=== PATIENT | female | born 1965 | race Caucasian/White ===

== ENCOUNTER 2020-03-25 15:08 | Outpatient (CLI) | payer BC, SELFPAY ==
[2020-03-27 13:52] LABS: SARS-CoV-2 RNA PCR Negative
== END 2020-03-25 15:09 | disposition home or self-care (01) ==
LOC: CHSLAB 15:12
PROVIDERS: PCP Internal Medicine; Visit Provider Internal Medicine
DX: Z20.828 Contact with and (suspected) exposure to other viral communicable diseases (principal)
CPT/HCPCS: 87635; C9803; U0003

== ENCOUNTER → 2021-04-08 16:03 | Outpatient (CLI) | payer BC, SELFPAY ==
--- NOTE | ~2021-04-08 | MM_ITS ---
EXAMINATION: MM screening marta BI w kathie HISTORY: Screening mammogram TECHNIQUE: Craniocaudal and mediolateral oblique 3-D tomosynthesis images were obtained and synthetic 2-D images were generated. CAD analysis was submitted and interpreted. COMPARISON: 05/02/2019 bilateral screening mammogram 04/29/2017 diagnostic left mammogram and limited left breast ultrasound 02/10/2016 bilateral screening mammogram BREAST PARENCHYMAL COMPOSITION: There are scattered areas of fibroglandular density. FINDINGS: There is no evidence of suspicious mass, calcification, or architectural distortion to sugg est malignancy in either breast. There has been no suspicious interval change. IMPRESSION: 1. No mammographic evidence of malignancy. 2. Recommend routine screening mammography in one year. BI-RADS Category 1: Negative Reviewed, dictated and finalized at location A.
== END ==
PROVIDERS: Visit Provider Nurse Practitioner
DX: Z12.31 Encounter for screening mammogram for malignant neoplasm of breast (principal)
CPT/HCPCS: 77063; 77067

== ENCOUNTER → 2021-06-17 13:27 | Outpatient (CLI) | payer BC, SELFPAY ==
--- NOTE | ~2021-06-17 | DEXA_ITS ---
Bone Density Report Name: ESTEVAN GREEN Age: 56 Sex: Female Ethnicity: White Date of : 1965 Indication: postmenopausal; screening for osteoporosis; height loss; Referring Provider: KIEL, GEORGINA Study: Bone densitometry was performed. Exam Date: June 17, 2021 Accession number: [id number] Bone Density: Region BMD T-score Z-score Classification AP Spine (L1, L4) 1.100 0.6 1.6 Normal Femoral Neck (Left) 0.865 0.1 1.2 Normal Total Hip (Left) 1.058 0.9 1.6 Normal Femoral Neck (Right) 0.869 0.2 1.2 Normal Total Hip (Right) 1.022 0.7 1.3 Normal Total Hip Mean 1.040 0.8 1.5 Normal World Health Organization criteria for BMD impression classify patients as: Normal (T-score at or above -1.0), Osteopenia (T-score between -1.0 and -2.5), or Osteoporosis (T-score at or below -2.5). 10-year Fracture Risk: FRAX not reported because: All T-scores for Spine Total, Hip Total, Femoral Neck at or above -1.0 Clinical Information Provided by Patient: Patient maximum height was 66 Menopause Age: 51 No regular weight bearing exercise Does not regularly consume dairy products Drinks caffeinated beverages Onset of menses at age 15 Number of children 1 Impression: The patient has normal bone mass. Discussion: BONE DENSITY IS ABOVE THE MINIMUM DESIRABLE LEVEL AT ALL SKELETAL SITES TESTED. This patient?s bone mineral density is above the minimum desirable level (T-score -1.0 or better) at all sites measured. The patient should follow a healthful lifestyle (good nutrition with adequate calcium and vitamin D, and appropriate weight-bearing exercise). Follow-Up: Consider repeating this study in 5 years or sooner if there is some new clinical indication. Reported by: [facility] on 06/17/2021 1:39:00 PM. Reviewed, dictated and finalized at location [facility]
== END ==
PROVIDERS: PCP Internal Medicine; Visit Provider Nurse Practitioner
DX: Z78.0 Asymptomatic menopausal state (principal)
CPT/HCPCS: 77080

== ENCOUNTER 2021-08-17 10:36 | Emergency (ER) | payer BC, SELFPAY ==
--- NOTE | ~2021-08-17 | CT_ITS ---
EXAMINATION: CT cervical spine wo con DATE: 08/17/2021 11:33 INDICATION: Head injury. TECHNIQUE: Computed tomography (CT) of the cervical spine was performed without intravenous contrast. Automated exposure control and iterative reconstruction technique were employed. The dose-length pro duct was 402.02 mGy-cm. COMPARISON: None FINDINGS: There is cervical kyphosis. Vertebral body heights are normal. There is mildly decreased di sc height at C3-C4 and severely decreased disc height from C4-C5 through C6-C7 with endplate remodeli ng. The following disc levels are specifically discussed: C2-C3: There is mild bilateral uncovertebral joint osteoarthritis. There is severe bilateral facet landry int osteoarthritis. There is mild right neural foraminal stenosis. There is no central canal stenosis . C3-C4: There is moderate bilateral uncovertebral joint osteoarthritis. There is mild bilateral facet joint osteoarthritis. There is mild left neural foraminal stenosis. There is mild central canal steno sis. C4-C5: There is severe bilateral uncovertebral joint osteoarthritis. There is mild left facet joint o steoarthritis. There is mild bilateral neural foraminal stenosis. There is mild central canal stenosi s. C5-C6: There is severe bilateral uncovertebral joint osteoarthritis. There is mild right facet joint osteoarthritis. There is mild bilateral neural foraminal stenosis. There is mild central canal stenos is. C6-C7: There is severe bilateral uncovertebral joint osteoarthritis. There is mild bilateral facet landry int osteoarthritis. There is mild bilateral neural foraminal stenosis. There is mild central canal st enosis. C7-T1: There is no uncovertebral joint osteoarthritis. There is severe right and mild left facet join t osteoarthritis. There is mild right neural foraminal stenosis. There is no central canal stenosis. IMPRESSION: 1. No fracture. 2. Moderate cervical spondylosis. Reviewed, dictated and finalized at location A. 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
--- NOTE | ~2021-08-17 | CT_ITS ---
EXAMINATION: CT brain wo con DATE: 08/17/2021 11:33 INDICATION: Loss of consciousness. Head injury. TECHNIQUE: Computed tomography (CT) of the head was performed without intravenous contrast. The mA wa s adjusted according to patient size. Iterative reconstruction technique was employed. The dose-lengt h product was 605.33 mGy-cm. COMPARISON: None FINDINGS: There is no intracranial hemorrhage, acute infarction, or abnormal intracranial mass lesion . The ventricles are normal in size. There are no pathologically enlarged lymph nodes. There is mild mucosal thickening in the paranasal sinuses. The mastoid air cells are normal. There is right-sided s calp soft tissue swelling. IMPRESSION: 1. Normal brain. Reviewed, dictated and finalized at location A. S BAKER IMPRESSION: 1. Normal brain.
[2021-08-17 10:43] VITALS: BP 144/102; PULSE 81; RESP 16; TEMP 36.4; O2SAT 99
[2021-08-17 11:04] VITALS: O2SAT 99
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
[2021-08-17 11:58] VITALS: BP 148/84; PULSE 76; RESP 16; O2SAT 97
== END 2021-08-17 12:00 | disposition home or self-care (01) ==
PROVIDERS: Emergency Provider Nurse Practitioner Family; PCP Internal Medicine
DX: S06.9X9A Unspecified intracranial injury with loss of consciousness of unspecified duration, initial encounter (principal); M47.12 Other spondylosis with myelopathy, cervical region; V86.55XA Driver of 3- or 4- wheeled all-terrain vehicle (ATV) injured in nontraffic accident, initial encounter
CPT/HCPCS: 70450; 72125; 99284

== ENCOUNTER → 2022-04-06 15:01 | Outpatient (CLI) | payer BC, SELFPAY ==
--- NOTE | ~2022-04-06 | US_ITS ---
EXAMINATION: US transvaginal DATE: 04/06/2022 15:30 INDICATION: Postmenopausal bleeding Comparison:No prior studies for comparison. TECHNIQUE: Multiple transabdominal and endovaginal sonographic images of the pelvis performed. FINDINGS: The uterus measures 6.1 x 2.8 x 3.5 cm. The endometrial complex measures 5.4 mm. The ovaries are not visualized, likely atrophic. There is no free fluid in the pelvis. There are no abnormal masses seen on either side. IMPRESSION: 1. Thickened endomtrial complex. The differential diagnosis includes endometrial hyperplasia, polyp a nd carcinoma. Biopsy is recommended. Reviewed, dictated and finalized at location B. IMPRESSION: 1. Thickened endomtrial complex. The differential diagnosis includes endometria l hyperplasia, polyp and carcinoma. Biopsy is recommended.
== END ==
PROVIDERS: PCP Internal Medicine; Visit Provider Nurse Practitioner
DX: N95.0 Postmenopausal bleeding (principal)
CPT/HCPCS: 76830

== ENCOUNTER 2022-04-28 15:23 | Outpatient (CLI) | payer BC, SELFPAY ==
[2022-04-28 16:15] LABS: Anion Gap 11 mmol/L (8-16); Blood Urea Nitrogen 16 mg/dL (7-17); Calcium 8.8 mg/dL (8.4-10.2); Carbon Dioxide 26 mmol/L (22-30); Chloride 102 mmol/L (98-107); Estimated Glomerular Filt Rate > 60; Glucose 63 mg/dL (65-110); Potassium 4.2 mmol/L (3.4-5.0); Sodium 139 mmol/L (137-145)
== END 2022-04-28 15:24 | disposition home or self-care (01) ==
LOC: ANHSURGERY 15:28
PROVIDERS: Anesthesiology; PCP Internal Medicine; Visit Provider Obstetrics & Gynecology Gynecology
DX: E10.9 Type 1 diabetes mellitus without complications (principal); Z01.818 Encounter for other preprocedural examination
CPT/HCPCS: 36415; 80048

== ENCOUNTER 2022-05-03 00:32 | Day surgery (SDC) | payer BC, SELFPAY ==
[2022-04-23 14:15] VITALS: BMI 34.9
--- NOTE | 2022-04-23 14:19 | PC.NURSE ---
Report to the Outpatient Waiting Room, entrance under the green pavilion located off [facility], at time 6:00 on date 05/03/22. Planned Procedure Time: 7:30. Time changes happen often and if your time is changed the preop area will call you the afternoon before. - You and your visitor will be asked to self-screen and do not enter if you have any COVID symptoms. - We encourage only one visitor and NO visitors under age 16 are allowed at this time. Your visitor will receive communication by the phone number that is given day of service. - The patient visitor is requested to social distance or may leave the building when not with patient due to restrictions. - A mask is OPTIONAL within the hospital. Patients may have clear liquids (water, carbonated beverages, clear teas, apple juice) until 3 hours prior to surgery (4:30) with a maximum of 20 ounces. - No food from midnight until time of surgery Take the following medications with a SIP of water the morning of surgery: VALACYCLOVIR Medications to discontinue per physician: N/A Date to take last dose: N/A Please no make-up, nail guamanian, hairspray, perfume, deodorant, or body powder the day of surgery. No jewelry (including any body piercings) or valuables the day of surgery, leave them at home. Please take a shower or bath the night before, or the morning of, surgery with an antibacterial soap. Wear comfortable, loose fitting clothing. - Jewelry must be removed prior to entering the operating room. Rings and piercings that are not removed may be cut off. - The hospital will not accept responsibility for valuables. - Please leave all valuables, including medications, at home the day of surgery. If you are going home after surgery, a licensed local company hazmat driver must drive you home. - NO public transportation without another adult. - We recommend that an adult stay with you for 24 hours following discharge. - We also recommend that you do not drive, make important decision, drink alcoholic beverages, or take any drugs that were not prescribed by your health care provider for at least 24 hours after your discharge time. Follow any additional instructions given to you from your surgeon. If you or anyone in your household have experienced Covid symptoms in the past week, please notify your surgeon or the nurse liaison at the phone number below for possible testing. Telephone instructions given to EMILI GREEN and asked if any additional questions and then verbalized understanding. Patient advised to call surgeon office or pre surgery nurse liaison [phone] if any additional questions.
--- NOTE | 2022-04-30 15:53 | WPDANESEPPF ---
Anes - Initial Pre Proc Eval Procedure: Operation Date: 05/03/22 07:30 Proposed Procedures p Hysteroscopy Dilation and Curettage Possible Myosure - Beba Grant MD Date/Time: 04/30/22 15:53 Surgeon: Beba Grant MD Pre Op Diagnosis: endometrial polyp Patient Data Age: 57 Gender: F Height: 1.65 m Weight: 95.25 kg Allergies Allergy/AdvReac Type Severity Reaction Status Date / Time Penicillins Allergy Mild RASH Verified 05/03/22 06:10 Home Medications Medication Instructions Recorded Confirmed Type dapagliflozin 10 mg tablet 10 mg PO DAILY 04/23/22 05/03/22 History (Farxiga) dulaglutide 3 mg/0.5 mL 3 mg subcut WEEKLY 04/23/22 05/03/22 History subcutaneous pen injector (Trulicity) insulin degludec 100 unit/mL (3 100 unit subcut DAILY 04/23/22 05/03/22 History mL) subcutaneous pen (Tresiba FlexTouch U-100 insulin) insulin lispro 100 unit/mL 5 unit subcut BID 04/23/22 05/03/22 History subcutaneous pen (Humalog KwikPen (U-100) Insulin) valacyclovir 500 mg tablet 500 mg PO DAILY 04/23/22 05/03/22 History Patient hx anesthesia problems: none Family hx anesthesia problems: none Results Review: All pre-operative results and documents have been reviewed as part of the pre-operative evaluation. [facility] Past Medical History Medical History (Updated 04/30/22 @ 15:54 by Kurt Casillas MD) Diabetes Obesity Social History Social History Smoking status: Never smoker Alcohol intake: current Drinks per week: 10 Substance use: never Substance use type: does not use Living arrangements: with family Spiritual care concerns: No Anes - Eval Final PreProcedure Day of Procedure 04/30/22 15:53 Patient weight: obese Heart: regular rate and rhythm Lungs: clear to auscultation and normal air movement Airway: Mallampati scale class II Neurological: alert and oriented Last oral intake: >/= 8 hours ASA classification: III Emergent: no Anesthetic plan: proceed Anesthesia type and monitoring: general GIVS and LMA Results Review: All pre-operative results and documents have been reviewed as part of the pre-operative evaluation. Informed Consent: The patient's anesthetic plan and its attendant risks and benefits were discussed with the patient/family/POA. Questions were solicited and answers provided to the satisfaction of the patient/family/POA.
[2022-05-03] MEDS: ACETAMINOPHEN 500 MG TABLET 1000 MG PO (06:14)
[2022-05-03 06:21] VITALS: BP 164/86; PULSE 69; RESP 16; TEMP 36.2; O2SAT 99
[2022-05-03] MEDS: LACTATED RINGERS 1,000 ML 30 ML IV CONT (06:49)
[2022-05-03 06:50] LABS: Glucose Point of Care 202 mg/dl (65-105)
--- NOTE | 2022-05-03 07:06 | WPDHPUPDATE1 ---
History and Physical Update Update Date/Time: 05/03/22 07:06 History and Physical has been reviewed, including an updated exam of the patient. There are NO changes in the patient's condition. Risks, benefits, and alternatives have been discussed and questions answered. Patient agrees to proceed with procedure.
--- NOTE | 2022-05-03 07:06 | PM.HPGS ---
History of Present Illness History of Present Illness Consent: Risks, benefits, and alternatives have been discussed and questions answered. Patient agrees to proceed with procedure. Chief complaint: endometrial polyp Narrative: Lindy Stone is a 57 year old female with postmenopausal bleeding. Patient underwent D&C hysteroscopy the office and did not tolerate very well. A polyp was found at that time but the patient was unable to tolerate attempted removal. The patient presents today for D&C hysteroscopy with resection of polyp. Risks of infection, bleeding, and perforation were reviewed. Possible pathology was discussed. Patient voices understanding and agrees to proceed. Review of Systems Review of Systems: not repeated day of surgery; patient states no changes in status PMFSH Past Medical History Medical History (Updated 05/03/22 @ 07:10 by Beba Grant MD) Diabetes HTN (hypertension) Obesity Surgical History Surgical History (Updated 05/03/22 @ 07:09 by Beba Grant MD) History of History of elbow surgery History of eyelid surgery History of repair of ACL History of rotator cuff surgery bilateral Social History Social History Smoking status: Never smoker Alcohol intake: current Drinks per week: 10 Substance use: never Substance use type: does not use Living arrangements: with family Spiritual care concerns: No Meds Home Medications and Allergies Home Medications Medication Instructions Recorded Confirmed Type dapagliflozin 10 mg tablet 10 mg PO DAILY 04/23/22 05/03/22 History (Farxiga) dulaglutide 3 mg/0.5 mL 3 mg subcut WEEKLY 04/23/22 05/03/22 History subcutaneous pen injector (Trulicity) insulin degludec 100 unit/mL (3 100 unit subcut DAILY 04/23/22 05/03/22 History mL) subcutaneous pen (Tresiba FlexTouch U-100 insulin) insulin lispro 100 unit/mL 5 unit subcut BID 04/23/22 05/03/22 History subcutaneous pen (Humalog KwikPen (U-100) Insulin) valacyclovir 500 mg tablet 500 mg PO DAILY 04/23/22 05/03/22 History Allergies Allergy/AdvReac Type Severity Reaction Status Date / Time Penicillins Allergy Mild RASH Verified 05/03/22 06:10 Vital Signs Vital Signs - 24 hr 05/03/22 06:21 Temperature 97.1 F L Pulse Rate 69 Respiratory Rate 16 Blood Pressure 164/86 H Pulse Oximetry 99 Oxygen Delivery Room Air Exam Const: General: healthy appearing and alert Orientation/consciousness: patient oriented x3 Resp: Effort & Inspection: normal respiratory effort GI: GI Palp: Yes Soft to palpation, No Tenderness to palpation present (GI) and No Palpable mass present : External Female Exam: normal external appearance Speculum Exam - Vagina: normal appearance of the vagina and normal vaginal discharge Speculum Exam - Cervix: normal appearance of the cervix Bimanual exam- vagina & uterus: uterine size normal and consistency normal Bimanual Exam- Adnexa, other: normal adnexae and No adnexal tenderness Neuro: General: patient oriented x3 Assessment and Plan Assessment and plan (1) Endometrial polyp: Code(s): N84.0 - Polyp of corpus uteri Status: Acute Assessment and Plan: polyp causing postmenopausal bleeding. Plan for hysteroscopy with resection of polyp and D&C
[2022-05-03] MEDS: LIDOCAINE HCL 1% LOCAL INJ 20 ML VIAL 30 ML INFILTRATE (07:54)
[2022-05-03] MEDS: KETOROLAC 30 MG/ML VIAL (*BKC) IV PUSH (07:55)
[2022-05-03 08:00] VITALS: BP 128/85; PULSE 71; RESP 12; O2SAT 96
--- NOTE | 2022-05-03 08:04 | P.OP_ITS ---
Procedure Note - Detailed Date of Procedure 05/03/22 Pre-op Diagnosis endometrial polyp postmenopausal bleeding Post-op Diagnosis Same Procedure Performed hysteroscopic resection of polyp with D&C Surgeon Beba Grant MD Anesthesia MAC and Local Findings uterus sounds to 6.5cm and a fundal polyp was noted; atrophic endometrium Description of Procedure The patient is taken to the operating room and placed under anesthesia in the dorsal lithotomy position. She was prepped and draped in the usual sterile fashion. [place] speculum was placed in the vagina and the cervix grasped on the anterior lip with a tenaculum. The cervix is injected in each quadrant with 1% lidocaine. The uterus is sounded to 6.5cm. The cervix was serially dilated to an 8 Hegar. The diagnostic MyoSure scope was placed. The polyp was noted and the polyp was removed with the MyoSure resection blade under direct visualization. The instruments are removed and the uterus curetted with the small curette. Minimal materials obtained consistent with the atrophic appear ance. All instruments are removed. Sponge, needle, and instrument counts are correct per the OR staff. Patient is awakened from anesthesia and taken to recovery in stable condition. Estimated Blood Loss 5 Drains No Packing No Pathology Yes ( Endometrial shavings and curettings) Complications No immediate complications Condition Stable Disposition PACU
[2022-05-03 08:05] LABS: Glucose Point of Care 180 mg/dl (65-105)
[2022-05-03 08:30] VITALS: BP 133/84; PULSE 58; RESP 20
[2022-05-03 08:45] VITALS: BP 155/80; PULSE 58; RESP 20
== END 2022-05-03 08:51 | disposition home or self-care (01) ==
PROVIDERS: PCP Internal Medicine; Visit Provider Obstetrics & Gynecology Gynecology
PROC: 0U5B8ZZ Destruction of Endometrium, Via Natural or Artificial Opening Endoscopic (ICD-10-PCS; CPT 58563; principal; 2022-05-03 07:30)
DX: N95.0 Postmenopausal bleeding (principal); N84.0 Polyp of corpus uteri; E11.9 Type 2 diabetes mellitus without complications; I10 Essential (primary) hypertension; E66.9 Obesity, unspecified; Z68.35 Body mass index [BMI] 35.0-35.9, adult; Z79.899 Other long term (current) drug therapy; Z79.4 Long term (current) use of insulin
CPT/HCPCS: 58558; 82948; 88305; A9270; J1885; J2250; J2704; J3010; J7120

== ENCOUNTER 2022-08-05 19:10 | Inpatient (IN) | payer BC, SELFPAY ==
--- NOTE | ~2022-08-05 | XR_ITS ---
Portable chest x-ray Comparison: 08/05/2022 Clinical History: Dyspnea Findings: Lungs are clear, without focal consolidation or pleural effusion. Cardiomediastinal silho uette is stable. Bones and soft tissues are unremarkable. Impression: Normal chest. Reviewed, dictated and finalized at [facility]. ING CHEF Impression: Normal chest.
--- NOTE | ~2022-08-05 | XR_ITS ---
EXAMINATION: XR chest 2V DATE: 08/05/2022 20:20 INDICATION: Shortness of breath. TECHNIQUE: Frontal and lateral views of the chest were obtained. COMPARISON: None. FINDINGS: The chest demonstrates clear lungs without pneumonia, pleural effusion, or pneumothorax. Th e heart size is normal. IMPRESSION: 1. No acute cardiopulmonary disease. Reviewed, dictated and finalized at location A. ENT ADVOCATE
--- NOTE | ~2022-08-05 | CT_ITS ---
CT scan of the Neck Technique: 2.5 mm axial scans were obtained through the neck without IV contrast administration. Mira nal and sagittal reconstructions of the neck were obtained. Dose reduction technique was used on this scan by utilizing automated exposure control and iterative reconstruction technique. The dose-length product (DLP) was 564.79 mGy-cm. Clinical History: Throat pain Findings: There is no evidence of any significant cervical lymphadenopathy. Several small, nonenlarged jugulo- digastric and posterior cervical lymph nodes are noted bilaterally. Parapharyngeal spaces appear norm al bilaterally. The parotid and submandibular glands appear normal. The pharyngeal mucosal spaces appear normal. No soft tissue masses are seen in the neck. The thyroid gland appears normal. Images of the lung apices reveal no abnormalities. There is extensi ve opacification of bilateral ethmoid air cells, bilateral sphenoid sinuses, with mild sinus disease the bilateral maxillary sinuses. Mastoid air cells are clear. Mild degenerative spondylitic changes in the cervical spine are noted, with multilevel mild disc narr owing and multiple mild disc osteophyte complexes. Impression: No acute inflammatory process seen in the neck. Sinus disease, as above. Reviewed, dictated and finalized at location . STFEEDING EDUCATOR Impression: No acute inflammatory process seen in the neck. Sinus disease, as above.
[2022-08-05 19:22] VITALS: BP 177/99; PULSE 98; RESP 20; TEMP 36.9; O2SAT 99
--- NOTE | 2022-08-05 19:26 | ECG_ITS ---
Measurements Intervals [place] Rate: 112 P: 63 VT: 112 QRS: 40 QRSD: 76 T: 59 QT: 323 QTc: 442 Interpretive Statements SINUS TACHYCARDIA WITH SHORT VT INTERVAL OTHERWISE UNREMARKABLE ECG NO PREVIOUS ECG AVAILABLE FOR COMPARISON Electronically Signed On 08-06-2022 15:12:28 PRINTED CIRCUIT BOARD ASSEMBLY REPAIRER by Osman Kenney M.D.
[2022-08-05 19:59] LABS: Basophils Absolute Auto 0.1 K/mm3 (0.0-0.1); Basophils Percent Auto 0.6 % (0.2-1.2); Hematocrit 48.5 % (37.0-47.0); Hemoglobin 15.3 g/dL (12.0-15.0); Immature Granulocyte Absolute 0.14 K/mm3 (0.00-0.031); Immature Granulocyte Percent A 1.2 % (0-0.5); Lymphocytes Absolute Auto 0.69 K/mm3 (0.9-3.2); Lymphocytes Percent Auto 5.9 % (18.3-44.2); Mean Corpuscular HGB Conc 31.5 g/dl (32-36); Mean Corpuscular Hemoglobin 32.1 pg (26-34); Mean Corpuscular Volume 101.9 fl (80-100); Mean Platelet Volume 9.3 fl (7.4-10.4); Monocytes Absolute Auto 1.2 K/mm3 (0.1-0.6); Monocytes Percent Auto 10.4 % (2.6-8.5); Neutrophils Absolute Auto 9.7 K/mm3 (1.3-6.7); Neutrophils Percent Auto 81.9 % (45.5-73.1); Platelet Count Result 489 k/mm3 (150-375); Red Blood Count 4.76 M/mm3 (4.2-5.4); Red Cell Distribution Width 14.5 % (11.5-14.5); White Blood Count 11.8 K/mm3 (4.5-10.0)
[2022-08-05 20:09] LABS: Alanine Aminotransferase 31 U/L (6-35); Albumin Level 4.7 g/dL (3.5-5.1); Alkaline Phosphatase 171 U/L (38-126); Anion Gap 23 mmol/L (8-16); Aspartate Amino Transferase 35 U/L (14-36); Bilirubin,Total 0.7 mg/dL (0.2-1.3); Blood Urea Nitrogen 23 mg/dL (7-17); Calcium 9.3 mg/dL (8.4-10.2); Carbon Dioxide 6 mmol/L (22-30); Chloride 103 mmol/L (98-107); Estimated CRCL calculation 41 ml/min; Estimated Glomerular Filt Rate 33; Glucose 300 mg/dL (65-110); Potassium 5.5 mmol/L (3.4-5.0); Sodium 132 mmol/L (137-145)
[2022-08-05 21:01] VITALS: BP 163/90; PULSE 111; O2SAT 99
[2022-08-05 23:03] VITALS: BP 165/93; PULSE 95; O2SAT 96
[2022-08-06] VITALS (25 sets, daily range): BP systolic 143–188; BP diastolic 65–96; PULSE 71–108; RESP 18–27; TEMP 36.3–37.1; O2SAT 95–100; BMI 35.4
--- NOTE | 2022-08-06 01:57 | ED.SOB ---
HPI - SOB/Dyspnea General Chief Complaint: Shortness of Breath/Dyspnea Stated Complaint: sob Time Seen by Provider: 08/06/22 01:50 Source: RN notes reviewed History of Present Illness HPI Narrative: Patient presents emergency department from home for shortness of breath. Patient states symptoms began approximately 5 days ago when she developed a sore throat she states that that progressed to a sore throat with rhinorrhea and then began to feel short of breath yesterday she states she has had a cough this been nonproductive. States that she is also been having nausea and vomiting. She denies any fevers or chills she denies any chest pain she denies any abdominal pain or diarrhea. Patient states she has a diabetic and is on both insulin as well as oral medications Related Data Home Medications Medication Instructions Recorded Confirmed dapagliflozin 10 mg tablet 10 mg PO DAILY 04/23/22 05/03/22 (Farxiga) dulaglutide 3 mg/0.5 mL 3 mg subcut WEEKLY 04/23/22 05/03/22 subcutaneous pen injector (Trulicity) insulin degludec 100 unit/mL (3 100 unit subcut DAILY 04/23/22 05/03/22 mL) subcutaneous pen (Tresiba FlexTouch U-100 insulin) insulin lispro 100 unit/mL 5 unit subcut BID 04/23/22 05/03/22 subcutaneous pen (Humalog KwikPen (U-100) Insulin) valacyclovir 500 mg tablet 500 mg PO DAILY 04/23/22 05/03/22 Allergies Allergy/AdvReac Type Severity Reaction Status Date / Time Penicillins Allergy Mild RASH Verified 05/03/22 06:10 Review of Systems Review of Systems: Gen.: Denies fevers or chills Eyes: Denies eye pain or visual change ENT: See HPI Respiratory: Reports shortness of breath and cough CV: Denies chest pain or palpitations GI: Denies abdominal pain or diarrhea. Reports nausea and vomiting Musculoskeletal: Denies back pain or muscle pain Neuro: Denies numbness, tingling, weakness or focal weakness Skin: Denies rash Except as documented, all other systems reviewed and negative PMF Past Medical History Medical History Diabetes HTN (hypertension) Obesity Surgical History Surgical History (Updated 05/03/22 @ 07:09 by Beba Grant MD) History of History of elbow surgery History of eyelid surgery History of repair of ACL History of rotator cuff surgery bilateral Social History Social History Smoking status: Never smoker Alcohol intake: current Drinks per week: 10 Substance use: never Substance use type: does not use Living arrangements: with family Spiritual care concerns: No Exam Narrative: APPEARANCE: No acute distress, nontoxic, resting in bed EYES: EOMI HEENT: Normocephalic, atraumatic, TMs clear bilaterally nares patent oral mucosa dry mild erythema in the posterior pharynx and bilateral tonsils tonsils 2+ with no exudate uvula midline mild stridor present voice is hoarse RESPIRATORY: No respiratory distress mild wheezing upper lung baker, no rhonchi CARDIOVASCULAR: Regular rate and rhythm without murmurs rubs or gallops. ABDOMINAL: Soft, nontender, nondistended, no rebound or guarding MUSCULOSKELETAl: Moves all extremities. No clubbing, cyanosis or edema. NEURO: Awake and alert. Following commands, speech normal, no focal deficits SKIN:: Warm, dry. No rashes lesions or abrasions PSYCHIATRIC: Normal affect/mood, Course Course Emergency Course: Called and discussed with Dr. Box for cognos bi developer service presentation and work-up agrees with admission to the ICU Called and Dr. Soliman for hospitalist service agrees with admission Discussed with patient and family results of workup and diagnosis. Discussed need for admission. Patient and family understand and agree to current treatment plan Vital Signs Vital signs: Vital Signs Temperature 98.4 F 08/05/22 19:22 Pulse Rate 98 08/05/22 19:22 Respiratory Rate 20
[2022-08-06] MEDS: IPRATROPIUM BR 0.02% INH SOLN 0.5 MG/2.5 ML VIAL INHALATION ×3 (02:23→21:12)
[2022-08-06] MEDS: ALBUTEROL SULFATE NEB 2.5 MG/3 ML INH INHALATION (02:23)
[2022-08-06] MEDS: SODIUM CHLORIDE 0.9% IV 1,000 ML 999 ML IV CONT ×2 (02:25→02:26)
[2022-08-06 02:44] LABS: INR 1.2; Partial Thromboplastin Time 33.4 SECONDS (22.3-36.8); Prothrombin Time 14.3 Seconds (11.1-14.7)
[2022-08-06 02:46] LABS: Alveolar/Arterial O2 Gradient 22.4 mmHg; Base Excess ABG -25.5 mEq/l (+/-2.0); Carboxyhemoglobin 1.2 % THb (0-2.0); Fractional Inspired Oxygen 21 %; HCO3 ABG 3.2 mEq/l (22.0-26.0); Methemoglobin ABG 0.4 %THb (0-1.5); Oxygen Content ABG 20.1 %vol (16.0-22.0); PO2 ABG 112.6 mmHg (80.0-100.0); PO2 FiO2 Ratio Arterial Blood 5.36 %; Reduced Hemoglobin 2.4 %THb (0-5.0); Total Hemoglobin 14.8 g/dL (12.0-18.0)
[2022-08-06 02:48] LABS: Device ROOM AIR; Modified Allen's Test Pass; PCO2 ABG 12.3 mmHg (35.0-45.0); Site Drawn LEFT RADIAL; pH ABG 7.034 (7.350-7.450)
[2022-08-06 03:06] LABS: Strep Group A RT-PCR NOT DETECTED (Negative)
[2022-08-06 03:19] LABS: Blood Urea Nitrogen 27 mg/dL (7-17); Carbon Dioxide < 5 mmol/L (22-30); Chloride 99 mmol/L (98-107); Estimated CRCL calculation 33 ml/min; Estimated Glomerular Filt Rate 26; Glucose 421 mg/dL (65-110); Lipase 43 U/L (23-300); Magnesium 2.7 mg/dL (1.6-2.3); Sodium 130 mmol/L (137-145)
[2022-08-06 03:20] LABS: Influenza A QL RT-PCR Negative (Negative); Influenza B QL RT-PCR Negative (Negative); RSV RNA, RT-PCR Negative (Negative); SARS-CoV-2 RNA PCR Positive
[2022-08-06] MEDS: INSULIN HUMAN REGULAR (*BKC) 100 UNITS in SODIUM CHLORIDE 0.9% IV 99 ML 7.2 UNITS IV CONT (03:51)
[2022-08-06 04:51] LABS: Appearance Urine Clear (Clear); Bilirubin Urine 1+ (Negative); Blood Urine 2+ (Negative); Color Urine Yellow (Yellow); Glucose Urine UA 2+ mg/dL (Negative); Ketones Urine 4+ mg/dL (Negative); Leukocyte Esterase Ur Negative LEU/UL (Negative); Nitrate Urine Negative (Negative); Protein Urine 2+ mg/dL (Negative); Urobilinogen Urine 0.2 mg/dL (<2.0)
[2022-08-06 04:55] LABS: Bacteria Urine Trace /hpf; Mucus Urine Rare /lpf; RBC Urine 0-2 /hpf (0-2); Squamous Epithelial Cell Urine Occasional /hpf (Few); WBC Urine 0-3 /hpf
[2022-08-06 05:03] LABS: Glucose Point of Care 337 mg/dl (65-105)
[2022-08-06 05:33] LABS: Add Urine Microscopic? YES
[2022-08-06 05:59] LABS: D Dimer 2.52 ug/mL (<0.48)
[2022-08-06 06:12] LABS: Glucose Point of Care 321 mg/dl (65-105)
[2022-08-06 06:32] LABS: Phosphorus 4.5 mg/dL (2.5-4.5)
[2022-08-06 06:54] LABS: Hemoglobin A1C 6.3 % (<5.7)
[2022-08-06 06:58] LABS: Blood Urea Nitrogen 26 mg/dL (7-17); Calcium 8.2 mg/dL (8.4-10.2); Carbon Dioxide < 5 mmol/L (22-30); Chloride 104 mmol/L (98-107); Estimated CRCL calculation 36 ml/min; Estimated Glomerular Filt Rate 29; Glucose 292 mg/dL (65-110); Potassium 4.9 mmol/L (3.4-5.0); Sodium 132 mmol/L (137-145)
[2022-08-06 07:20] LABS: Glucose Point of Care 315 mg/dl (65-105)
[2022-08-06] MEDS: SODIUM CHLORIDE 0.9% IV 1,000 ML 150 ML IV CONT (07:30)
[2022-08-06 08:32] LABS: Glucose Point of Care 233 mg/dl (65-105)
[2022-08-06] MEDS: KCL 20 MEQ/D5/0.45% SOD CHL 1,000 ML 150 ML IV CONT ×2 (09:00→15:11)
--- NOTE | 2022-08-06 09:00 | ADMIMU ---
This patient, Lindy Stone, was admitted to IMU status, and placed in Intensive Care Unit-11. Patient/family oriented to hospital policies and general routines including ID bracelet, bed and alarms, visiting hours, pain management, procedures, bathroom and other care routines, personal items, smoking policy, room service/diet, and visiting hours. Valuables list has been completed. Information on how to activate the Rapid Response Team has been discussed. Patient/Family are encouraged to report perceived risks to care and to ask questions if they do not understand what they are told or what they should do.
[2022-08-06 09:38] LABS: Glucose Point of Care 186 mg/dl (65-105)
[2022-08-06] MEDS: SODIUM CHLORIDE 0.9% IV 500 ML IV CONT ×2 (09:51→10:57)
[2022-08-06] MEDS: racEPINEPHrine 2.25% NEBU SOLN 0.5 ML VIAL.NEB INHALATION (10:06)
[2022-08-06 10:09] LABS: Anion Gap 18 mmol/L (8-16); Blood Urea Nitrogen 23 mg/dL (7-17); Carbon Dioxide 8 mmol/L (22-30); Chloride 103 mmol/L (98-107); Estimated CRCL calculation 53 ml/min; Estimated Glomerular Filt Rate 46; Glucose 159 mg/dL (65-110); Potassium 4.4 mmol/L (3.4-5.0); Sodium 129 mmol/L (137-145)
[2022-08-06 10:43] LABS: Glucose Point of Care 192 mg/dl (65-105)
[2022-08-06] MEDS: hydrALAZINE HCL 20 MG/ML VIAL 10 MG IV PUSH (11:01)
[2022-08-06] MEDS: REMDESIVIR 200 MG/NS 250 ML 200 MG/250 ML BAG 250 MG IVPB (11:24)
[2022-08-06] MEDS: guaiFENesin/DEXTROMETHORPHAN 10 ML UDC PO (11:34)
--- NOTE | 2022-08-06 11:44 | PCDIET ---
Physician consult for DKA. Patient is COVID positive. Diet order: NPO. When diet order advances would recommend a Diabetic Consistent Carb diet. Will continue to monitor every 3 days.
--- NOTE | 2022-08-06 11:55 | WPDCNINT ---
Assessment and Plan Assessment and plan (1) DKA (diabetic ketoacidosis): Code(s): E11.10 - Type 2 diabetes mellitus with ketoacidosis without coma Status: Acute Assessment and Plan: Patient presented with increasing shortness of breath, rhinorrhea, nonproductive cough -is found to be in DKA in the ER, was given 2 L IV fluid bolus and started on insulin infusion per DKA protocol -she had elevated beta hydroxybutyrate and anion gap metabolic acidosis -urine ketones +glucose +protein -a given additional 500 mL IV flui bolus in the ICU -hemoglobin A1c is 6.3 this admission -patient tested positive for COVID which could have been an inciting factor for a DKA -he also stated that she has been not taking her long-acting insulin for the last few days due to decreased p.o. intake (2) Acute renal insufficiency: Code(s): N28.9 - Disorder of kidney and ureter, unspecified Status: Acute Assessment and Plan: Patient presented with hypovolemia, acute kidney injury with creatinine of 2.0 this admission -she received 2 mg of L of IV fluids and repeat creatinine is 1.2 which is improved since admission -continue fluids per DKA protocol -monitor renal function, electrolytes and urine output (3) COVID-19: Code(s): U07.1 - COVID-19 Status: Acute Assessment and Plan: Patient with shortness of breath, nonproductive cough, rhinorrhea, sore throat -SARS-CoV-2 PCR was positive on 08/06/2022 in the ER -patient currently on room air -according to current guidelines patient is a candidate for remdesivir which was started to prevent any progression of the disease -she is not a candidate for baricitinib or steroids since she is not on any oxygen. Receive a dose of dexamethasone in the ER -CT scan of the neck and soft tissues showed ?There is extensive opacification of bilateral ethmoid air cells, bilateral sphenoid sinuses, with mild sinus disease the bilateral maxillary sinuses. Mastoid air cells are clear. No acute inflammatory process seen in the neck -patient is penicillin allergic, will start patient on Levaquin for her sinus disease Plan DVT prophylaxis: SQ lovenox Stress ulcer prophylaxis:not indicated Nutrition:NPO for now due to DKA Code Status: Full code Critical Care Time Spent: 47 minutes Due to a high probability of clinically significant, life threatening deterioration, the patient required my highest level of preparedness to intervene emergently and I personally spent this critical care time directly and personally managing the patient. This critical care time included obtaining a history; examining the patient; pulse oximetry; ordering and review of studies; arranging urgent treatment with development of a management plan; evaluation of patient's response to treatment; frequent reassessment; and discussions with other providers. It was exclusive of separately billable procedures and treating other patients and teaching time. Please see Assessment and Plan section and the rest of the note for further information on patient assessment and treatment This dictation may have been done utilizing a voice recognition system. Attempts have been made to correct errors. However, there may be uncorrected grammatical, spelling, and recognitions errors present. [employer] Specialist Consult Note Consult date: 08/06/22 Reason for consult: Diabetic ketoacidosis, COVID-19, shortness of breath, sore throat, rhinorrhea HPI: Lindy Stone is a 57 year old female with past medical history of diabetes, hypertension, obesity presented the ED on 08/06/2022 complains of shortness of breath, sore throat, rhinorrhea that started about 5 days ago. The shortness of breath worsened 1 day prior to admission and so did a cough which has been nonproductive. She has been complaining of nausea and vomiting, stated to me that she has not been taking her long-acting insulin only has short-acting insulin. She denies any fevers or chills, denies
[2022-08-06 12:11] LABS: Glucose Point of Care 152 mg/dl (65-105)
[2022-08-06] MEDS: INSULIN HUMAN REGULAR (*BKC) 100 UNITS in SODIUM CHLORIDE 0.9% IV 99 ML 7.3 UNITS IV CONT (12:20)
[2022-08-06] MEDS: levoFLOXacin 500 MG TABLET PO (12:58)
[2022-08-06 13:05] LABS: Glucose Point of Care 134 mg/dl (65-105)
[2022-08-06 14:18] LABS: Glucose Point of Care 131 mg/dl (65-105)
[2022-08-06] MEDS: METOPROLOL TARTRATE 12.5 MG TABLET PO ×2 (14:23→20:14)
[2022-08-06] MEDS: LEVALBUTEROL NEB 1.25 MG/3 ML 0.63 MG INHALATION ×2 (14:40→21:12)
[2022-08-06 15:03] LABS: Glucose Point of Care 128 mg/dl (65-105)
--- NOTE | 2022-08-06 15:05 | PM.IMHP ---
H&P: HPI History of Present Illness Date/Time: 08/06/22 15:05 Chief Complaint: shortness of breath Narrative: patient presents to the ED with shortness of breath that started approximately yesterday. She states that she has been having sore throat and rhinorrhea for the past few days with associated cough which is nonproductive. She has also been having nausea and vomiting. She denies any fever or chills. No chest pain. She started getting short of breath since yesterday and hence came to the ED for evaluation. She does have history of diabetes and is on insulin and also on Trulicity and Farxiga. In the ED she was noted to have mild leukocytosis 11,000 severe metabolic acidosis with bicarbonate of 6 with ELANA hyperglycemia at 300. Beta hydroxybutyrate was elevated at 11.3 D-dimer was elevated hyperkalemia lipase was normal she was also tested positive for COVID. She reports that she did to home test yesterday which was negative. She was diagnosed with DKA and was started on insulin drip. She has not had any DKA in the past. She has diagnosis Of diabetes in her 20s. Review of Systems Review of Systems: - CONSTITUTIONAL: Denies weight loss, fever and chills. - HEENT: Denies changes in vision and hearing - RESPIRATORY: reports SOB and cough. - CV: Denies palpitations and CP. - GI: Denies abdominal pain, reports nausea, vomiting and denies diarrhea. - : Denies dysuria and urinary frequency. - MSK: Denies myalgia and joint pain. - SKIN: Denies rash and pruritus. - NEUROLOGICAL: Denies headache and syncope. - PSYCHIATRIC: Denies recent changes in mood. Denies anxiety and depression. [facility] Past Medical History Medical History Diabetes HTN (hypertension) Obesity Surgical History Surgical History (Updated 05/03/22 @ 07:09 by Beba Grant MD) History of History of elbow surgery History of eyelid surgery History of repair of ACL History of rotator cuff surgery bilateral Social History Social History Smoking status: Never smoker Alcohol intake: current Drinks per week: 5 Substance use: current Substance use type: does not use Lack of Transportation: No Lack of Food: Never True Current Housing: I Have Housing Concerned About Future Housing: No Difficulty Paying Gas/Electric Bills: No Difficulty Paying for Meds: No Currently Unemployed: YES Education: High School Diploma/GED Difficulty w/ Childcare or Family Care: No Living arrangements: with family Spiritual care concerns: No Meds Home Medications and Allergies Home Medications Medication Instructions Recorded Confirmed Type dapagliflozin 10 mg tablet 10 mg PO DAILY 04/23/22 08/06/22 History (Farxiga) dulaglutide 3 mg/0.5 mL 3 mg subcut WEEKLY 04/23/22 08/06/22 History subcutaneous pen injector (Trulicity) insulin degludec 100 unit/mL (3 100 unit subcut DAILY 04/23/22 08/06/22 History mL) subcutaneous pen (Tresiba FlexTouch U-100 insulin) insulin lispro 100 unit/mL 5 unit subcut BID 04/23/22 08/06/22 History subcutaneous pen (Humalog KwikPen (U-100) Insulin) valacyclovir 500 mg tablet 500 mg PO DAILY 04/23/22 08/06/22 History aspirin 81 mg tablet 81 mg PO DAILY 08/06/22 08/06/22 History Allergies Allergy/AdvReac Type Severity Reaction Status Date / Time Penicillins Allergy Mild RASH Verified 05/03/22 06:10 Vital Signs Vital Signs - 24 hr 08/05/22 19:22 08/05/22 21:01 08/05/22 23:03 Temperature 98.4 F Pulse Rate 98 111 H 95 Respiratory Rate 20 Blood Pressure 177/99 H 163/90 H 165/93 H Pulse Oximetry 99 99 96 Oxygen Delivery Room Air Fraction of Inspired Oxygen 08/06/22 00:51 08/06/22 02:42 08/06/22 02:30 Temperature Pulse Rate 106 H 104 H Respiratory Rate 27 H Blood Pressure 172/92 H Pulse Oximetry 100
[2022-08-06 15:36] LABS: Anion Gap 10 mmol/L (8-16); Blood Urea Nitrogen 16 mg/dL (7-17); Calcium 8.2 mg/dL (8.4-10.2); Carbon Dioxide 12 mmol/L (22-30); Chloride 109 mmol/L (98-107); Estimated CRCL calculation 70 ml/min; Estimated Glomerular Filt Rate > 60; Glucose 131 mg/dL (65-110); Potassium 4.2 mmol/L (3.4-5.0); Sodium 131 mmol/L (137-145)
[2022-08-06 16:11] LABS: Glucose Point of Care 131 mg/dl (65-105)
--- NOTE | 2022-08-06 16:53 | PC.NURSE ---
Addendum entered by Bertha Xiong RN 08/06/22 16:55: Call [address] Box Addendum entered by Bertha Xiong RN 08/06/22 16:54: Call [address] Box Original Note: Notified Dr. Box of patient's BMP results. CO2 of 12 and Anion Gap of 10, insulin gtt at 5.7 units/hr. New order to continue insulin gtt and give another 500 ml bolus of NS
[2022-08-06] MEDS: SODIUM CHLORIDE 0.9% IV 500 ML 999 ML IV CONT (17:14)
[2022-08-06 18:04] LABS: Glucose Point of Care 129 mg/dl (65-105)
[2022-08-06 18:04] LABS: Glucose Point of Care 147 mg/dl (65-105)
[2022-08-06 19:03] LABS: Glucose Point of Care 108 mg/dl (65-105)
[2022-08-06 19:59] LABS: Anion Gap 9 mmol/L (8-16); Blood Urea Nitrogen 13 mg/dL (7-17); Calcium 8.5 mg/dL (8.4-10.2); Carbon Dioxide 15 mmol/L (22-30); Chloride 109 mmol/L (98-107); Estimated CRCL calculation 79 ml/min; Estimated Glomerular Filt Rate > 60; Glucose 108 mg/dL (65-110); Potassium 4.1 mmol/L (3.4-5.0); Sodium 133 mmol/L (137-145)
[2022-08-06 20:26] LABS: Glucose Point of Care 105 mg/dl (65-105)
[2022-08-06] MEDS: INSULIN GLARGINE (*BKC) 100 UNITS/ML 25 UNITS SUB-Q (21:27)
[2022-08-06 21:35] LABS: Glucose Point of Care 105 mg/dl (65-105)
[2022-08-06 22:25] LABS: Glucose Point of Care 119 mg/dl (65-105)
[2022-08-07] VITALS (19 sets, daily range): BP systolic 137–186; BP diastolic 70–83; PULSE 68–102; RESP 18–25; TEMP 36.3–36.9; O2SAT 97–99
[2022-08-07 00:12] LABS: Glucose Point of Care 136 mg/dl (65-105)
[2022-08-07] MEDS: guaiFENesin/DEXTROMETHORPHAN 10 ML UDC PO ×3 (03:29→21:33)
[2022-08-07] MEDS: LEVALBUTEROL NEB 1.25 MG/3 ML 0.63 MG INHALATION (03:30)
[2022-08-07] MEDS: IPRATROPIUM BR 0.02% INH SOLN 0.5 MG/2.5 ML VIAL INHALATION (03:30)
[2022-08-07 03:35] LABS: Basophils Percent Auto 0.2 % (0.2-1.2); Hematocrit 38.3 % (37.0-47.0); Hemoglobin 12.9 g/dL (12.0-15.0); Immature Granulocyte Absolute 0.06 K/mm3 (0.00-0.031); Immature Granulocyte Percent A 0.5 % (0-0.5); Lymphocytes Absolute Auto 0.59 K/mm3 (0.9-3.2); Mean Corpuscular HGB Conc 33.7 g/dl (32-36); Mean Corpuscular Hemoglobin 31.8 pg (26-34); Mean Corpuscular Volume 94.3 fl (80-100); Monocytes Absolute Auto 1.2 K/mm3 (0.1-0.6); Monocytes Percent Auto 10.4 % (2.6-8.5); Neutrophils Absolute Auto 9.9 K/mm3 (1.3-6.7); Neutrophils Percent Auto 83.9 % (45.5-73.1); Platelet Count Result 343 k/mm3 (150-375); Red Blood Count 4.06 M/mm3 (4.2-5.4); Red Cell Distribution Width 14.2 % (11.5-14.5); White Blood Count 11.8 K/mm3 (4.5-10.0)
[2022-08-07 03:48] LABS: INR 1.1; Prothrombin Time 13.6 Seconds (11.1-14.7)
[2022-08-07 03:55] LABS: Alanine Aminotransferase 26 U/L (6-35); Albumin Level 3.5 g/dL (3.5-5.1); Alkaline Phosphatase 119 U/L (38-126); Anion Gap 10 mmol/L (8-16); Aspartate Amino Transferase 32 U/L (14-36); Bilirubin,Total 0.5 mg/dL (0.2-1.3); Blood Urea Nitrogen 13 mg/dL (7-17); Calcium 8.6 mg/dL (8.4-10.2); Carbon Dioxide 16 mmol/L (22-30); Chloride 112 mmol/L (98-107); Estimated CRCL calculation 79 ml/min; Estimated Glomerular Filt Rate > 60; Glucose 199 mg/dL (65-110); Magnesium 2.4 mg/dL (1.6-2.3); Potassium 4.4 mmol/L (3.4-5.0); Sodium 138 mmol/L (137-145)
[2022-08-07] MEDS: hydrALAZINE HCL 20 MG/ML VIAL 10 MG IV PUSH ×2 (05:18→14:49)
[2022-08-07] MEDS: INSULIN ASPART (*BKC) 100 UNITS/ML SUB-Q ×3 (08:12→16:46)
[2022-08-07] MEDS: INSULIN GLARGINE (*BKC) 100 UNITS/ML 10 UNITS SUB-Q (08:13)
[2022-08-07] MEDS: valACYclovir HCL 500 MG TABLET PO (08:15)
[2022-08-07] MEDS: ENOXAPARIN 40 MG/0.4 ML SYRINGE SUB-Q (08:15)
[2022-08-07] MEDS: METOPROLOL TARTRATE 12.5 MG TABLET PO ×2 (08:15→20:53)
[2022-08-07] MEDS: levoFLOXacin 500 MG TABLET PO (08:15)
[2022-08-07] MEDS: BENZONATATE 100 MG CAPSULE 200 MG PO ×2 (08:25→17:17)
[2022-08-07] MEDS: SODIUM BICARBONATE 8.4% 50 MEQ/50 ML SYRINGE IV PUSH (08:25)
[2022-08-07] MEDS: ALBUTEROL SULFATE (*SP) AEROSOL 1 PUFF 2 PUFF INHALATION ×3 (08:43→20:41)
[2022-08-07 08:50] LABS: Glucose Point of Care 257 mg/dl (65-105)
[2022-08-07] MEDS: EMPAGLIFLOZIN 25 MG TABLET BY MOUTH (08:56)
[2022-08-07] MEDS: REMDESIVIR 100 MG/NS 250 ML 100 MG/250 ML BAG 250 MG IVPB (10:54)
[2022-08-07 12:49] LABS: Glucose Point of Care 260 mg/dl (65-105)
--- NOTE | 2022-08-07 13:17 | WPDINTPN ---
Progress Note: A&P Assessment and Plan (1) DKA (diabetic ketoacidosis): Code(s): E11.10 - Type 2 diabetes mellitus with ketoacidosis without coma Status: Acute Assessment and Plan: Patient presented with increasing shortness of breath, rhinorrhea, nonproductive cough, she has not been taking her insulin for the last 2 days due to decreased p.o. intake -is found to be in DKA in the ER, was given 2 L IV fluid bolus and started on insulin infusion per DKA protocol -she had elevated beta hydroxybutyrate and anion gap metabolic acidosis -urine ketones +glucose +protein -patient received adequate amount of IV fluids in the ER and ICU -hemoglobin A1c is 6.3 this admission -she was transition to long-acting insulin sliding scale insulin -started on diabetic diet -possible inciting event for DKA could have been COVID-19 (2) Acute renal insufficiency: Code(s): N28.9 - Disorder of kidney and ureter, unspecified Status: Acute Assessment and Plan: Patient presented with hypovolemia, acute kidney injury with creatinine of 2.0 this admission -she received adequate amount of IV fluids in the ICU and ER -adequate urine output, creatinine has normalized to 0.8 this morning -monitor renal function, electrolytes and urine output (3) COVID-19: Code(s): U07.1 - COVID-19 Status: Acute Assessment and Plan: Patient with shortness of breath, nonproductive cough, rhinorrhea, sore throat -SARS-CoV-2 PCR was positive on 08/06/2022 in the ER -patient currently on room air -according to current guidelines patient is a candidate for remdesivir which was started to prevent any progression of the disease -she is not a candidate for baricitinib or steroids since she is not on any oxygen. Receive a dose of dexamethasone in the ER -CT scan of the neck and soft tissues showed ?There is extensive opacification of bilateral ethmoid air cells, bilateral sphenoid sinuses, with mild sinus disease the bilateral maxillary sinuses. Mastoid air cells are clear. No acute inflammatory process seen in the neck -patient is penicillin allergic, will start patient on Levaquin for her sinus disease Plan DVT prophylaxis: SQ lovenox Stress ulcer prophylaxis: Lovenox Nutrition: Diabetic diet Code Status: Full code Critical Care Time Spent: 31 minutes Patient may be transferred to medical floor if okay with hospitalist Due to a high probability of clinically significant, life threatening deterioration, the patient required my highest level of preparedness to intervene emergently and I personally spent this critical care time directly and personally managing the patient. This critical care time included obtaining a history; examining the patient; pulse oximetry; ordering and review of studies; arranging urgent treatment with development of a management plan; evaluation of patient's response to treatment; frequent reassessment; and discussions with other providers. It was exclusive of separately billable procedures and treating other patients and teaching time. Please see Assessment and Plan section and the rest of the note for further information on patient assessment and treatment This dictation may have been done utilizing a voice recognition system. Attempts have been made to correct errors. However, there may be uncorrected grammatical, spelling, and recognitions errors present. Subjective Date/time seen: 08/07/22 13:17 Interval history: Reason for consult: DKA, COVID 19, shortness of breath, sore throat, rhinorrhea, nausea, vomiting 08/07/2022: Patient seen and examined the ICU. She was transitioned to long-acting insulin sliding scale insulin overnight after anion gap is closed. Insulin infusion has been discontinued. This morning patient states she feels much better, breathing is also better but she still has some nasal congestion, cough has improved. Patient is afebrile, hemodynamically stable, adequate urine output Rev
--- NOTE | 2022-08-07 14:50 | PC.NURSE ---
This patient, Lindy Stone, was transferred to [[id number] ] on 08/07/22 at 1350. Personal belongings sent with patient. Report given to [COSMO Fields ]. Appropriate documentation sent with patient.
[2022-08-07] MEDS: SALINE 0.65% NAS SOLN 44 ML BTL 1 SPRAY NASAL ×2 (14:51→20:52)
--- NOTE | 2022-08-07 16:25 | PM.IMPN ---
Progress Note: A&P Assessment and Plan (1) DKA (diabetic ketoacidosis): Code(s): E11.10 - Type 2 diabetes mellitus with ketoacidosis without coma Status: Acute (2) Acute renal insufficiency: Code(s): N28.9 - Disorder of kidney and ureter, unspecified Status: Acute (3) COVID-19: Code(s): U07.1 - COVID-19 Status: Acute Plan # acute DKA: IV fluid insulin infusion per DKA protocol elevated beta hydroxybutyrate and increased anion gap metabolic acidosis. A1c was 6.3 She does reports he has been taking long-acting insulin receive however has been not taking her Humalog. Likely underlying infection leading to related of insulin deficiency causing DKA. Continue DKA protocol as ordered Gap has closed and has been transitioned to Lantus lispro and diabetic diet. Continue to monitor labs Will hold SGLT 2 inhibitor to DKA # shortness of breath likely due to severe acidosis. Chest x-ray clear. Sinus disease Levaquin started allergic to penicillin # acute COVID infection: Likely factor for inciting DKA.No hypoxia and hence no baricitinib or remdesivir or steroid. #DVT prophylaxis: SQ lovenox # ELANA creatinine of 2 on admission continue IV fluid resolved # DVT prophylaxis Lovenox # code status full code Subjective Date/time seen: 08/07/22 16:25 Interval history: transfer out of the ICU today. Transition to basal bolus insulin. Diabetic diet Review of Systems Review of Systems: All systems reviewed & are unremarkable except as noted in HPI and below Objective Data Vital Signs Vital Signs: Vital Signs - 24 hr 08/06/22 18:00 08/06/22 18:00 08/06/22 20:14 Temperature Pulse Rate 90 88 92 Respiratory Rate 25 H Blood Pressure 158/78 H Pulse Oximetry 98 Oxygen Delivery Fraction of Inspired Oxygen 08/06/22 20:01 08/06/22 21:15 08/06/22 21:15 Temperature 97.3 F L Pulse Rate 85 73 Respiratory Rate 25 H 23 H Blood Pressure 146/77 H Pulse Oximetry 98 96 Oxygen Delivery Room Air Fraction of Inspired Oxygen 08/06/22 20:00 08/06/22 20:00 08/06/22 22:00 Temperature Pulse Rate 85 78 Respiratory Rate Blood Pressure Pulse Oximetry Oxygen Delivery Room Air Fraction of Inspired Oxygen 08/07/22 00:00 08/07/22 00:00 08/06/22 23:00 Temperature Pulse Rate 77 78 Respiratory Rate 22 H Blood Pressure 143/70 H Pulse Oximetry 95 Oxygen Delivery Room Air Fraction of Inspired Oxygen 08/07/22 00:00 08/07/22 02:00 08/07/22 02:00 Temperature 98.0 F Pulse Rate 68 78 78 Respiratory Rate 20 22 H Blood Pressure 141/70 H 137/76 Pulse Oximetry 99 97 Oxygen Delivery Fraction of Inspired Oxygen 08/07/22 03:30 08/07/22 03:33 08/07/22 03:38 Temperature 97.4 F L Pulse Rate 81 Respiratory Rate 19 Blood Pressure Pulse Oximetry Oxygen Delivery Room Air Fraction of Inspired Oxygen 08/07/22 04:00 08/07/22 04:29 08/07/22 05:08 Temperature Pulse Rate 75 102 H 91 Respiratory Rate 21 H 25 H Blood Pressure 184/83 H 174/75 H Pulse Oximetry 97 99 Oxygen Delivery Fraction of Inspired Oxygen 08/07/22 03:43 08/06/22 21:28 08/07/22 06:00 Temperature Pulse Rate 80 71 100 Respiratory Rate 19 23 H Blood Pressure Pulse Oximetry Oxygen Delivery Fraction of Inspired Oxygen 08/07/22 06:00 08/07/22 08:15 08/07/22 08:26 Temperature Pulse Rate 100 100 Respiratory Rate 21 H Blood Pressure 146/74 H Pulse Oximetry 97 98 Oxygen Delivery Room Air Fraction of Inspired Oxygen 21 08/07/22 08:00 08/07/22 08:00 08/07/22 08:00 Temperature 97.7 F Pulse Rate 88 90 Respiratory Rate 20 Blood Pressure 149/75 H Pulse Oximetry 98 97 Oxygen Delivery Room Air Fraction of Inspired Oxygen 08/07/22 10:00 08/07/22 10:00 08/07/22 14:36 Temperature 98.4 F Pulse Rate 102 H 102 H 89 Respiratory Rate 25 H 24 H Blood Pressure 145/74 H 186/81
[2022-08-07 16:45] LABS: Glucose Point of Care 281 mg/dl (65-105)
[2022-08-07] MEDS: SODIUM BICARBONATE TAB 650 MG TABLET PO (17:14)
[2022-08-07] MEDS: INSULIN GLARGINE (*BKC) 100 UNITS/ML 30 UNITS SUB-Q (20:54)
[2022-08-07 21:00] LABS: Glucose Point of Care 287 mg/dl (65-105)
[2022-08-08] VITALS (7 sets, daily range): BP systolic 153–159; BP diastolic 83; PULSE 79–97; RESP 18; TEMP 36.8–37; O2SAT 96–98
[2022-08-08] MEDS: guaiFENesin/DEXTROMETHORPHAN 10 ML UDC PO ×3 (03:09→16:29)
[2022-08-08] MEDS: BENZONATATE 100 MG CAPSULE 200 MG PO ×3 (03:09→22:33)
[2022-08-08 05:51] LABS: Basophils Percent Auto 0.2 % (0.2-1.2); Eosinophils Percent Auto 0.1 % (0-4.4); Hematocrit 37.8 % (37.0-47.0); Hemoglobin 12.8 g/dL (12.0-15.0); Immature Granulocyte Absolute 0.07 K/mm3 (0.00-0.031); Immature Granulocyte Percent A 0.7 % (0-0.5); Lymphocytes Absolute Auto 1.67 K/mm3 (0.9-3.2); Lymphocytes Percent Auto 16.2 % (18.3-44.2); Mean Corpuscular HGB Conc 33.9 g/dl (32-36); Mean Corpuscular Hemoglobin 31.1 pg (26-34); Mean Corpuscular Volume 91.7 fl (80-100); Monocytes Absolute Auto 1.1 K/mm3 (0.1-0.6); Neutrophils Absolute Auto 7.4 K/mm3 (1.3-6.7); Neutrophils Percent Auto 71.8 % (45.5-73.1); Platelet Count Result 358 k/mm3 (150-375); Red Blood Count 4.12 M/mm3 (4.2-5.4); Red Cell Distribution Width 14.5 % (11.5-14.5); White Blood Count 10.3 K/mm3 (4.5-10.0)
[2022-08-08 06:03] LABS: INR 1.1; Prothrombin Time 13.7 Seconds (11.1-14.7)
[2022-08-08 06:05] LABS: Alanine Aminotransferase 24 U/L (6-35); Albumin Level 3.4 g/dL (3.5-5.1); Alkaline Phosphatase 118 U/L (38-126); Anion Gap 7 mmol/L (8-16); Aspartate Amino Transferase 24 U/L (14-36); Bilirubin,Total 0.6 mg/dL (0.2-1.3); Blood Urea Nitrogen 17 mg/dL (7-17); Calcium 8.6 mg/dL (8.4-10.2); Carbon Dioxide 22 mmol/L (22-30); Chloride 109 mmol/L (98-107); Estimated CRCL calculation 89 ml/min; Estimated Glomerular Filt Rate > 60; Glucose 76 mg/dL (65-110); Magnesium 2.3 mg/dL (1.6-2.3); Phosphorus 1.6 mg/dL (2.5-4.5); Sodium 138 mmol/L (137-145)
[2022-08-08 08:17] LABS: Glucose Point of Care 34 mg/dl (65-105)
[2022-08-08] MEDS: DEXTROSE 50% 25 GM/50 ML SYRINGE IV PUSH ×2 (08:21→08:33)
[2022-08-08] MEDS: ALBUTEROL SULFATE (*SP) AEROSOL 1 PUFF 2 PUFF INHALATION ×3 (08:40→21:43)
[2022-08-08 08:44] LABS: Glucose Point of Care 182 mg/dl (65-105)
[2022-08-08] MEDS: ENOXAPARIN 40 MG/0.4 ML SYRINGE SUB-Q (08:44)
[2022-08-08] MEDS: METOPROLOL TARTRATE 12.5 MG TABLET PO ×2 (08:45→20:46)
[2022-08-08] MEDS: SODIUM BICARBONATE TAB 650 MG TABLET PO (08:46)
[2022-08-08] MEDS: levoFLOXacin 500 MG TABLET PO (08:46)
[2022-08-08] MEDS: valACYclovir HCL 500 MG TABLET PO (08:46)
[2022-08-08] MEDS: REMDESIVIR 100 MG/NS 250 ML 100 MG/250 ML BAG 250 MG IVPB (09:48)
[2022-08-08] MEDS: POTASSIUM PHOS,M-BASIC-D-BASIC 40 MMOL in SODIUM CHLORIDE 0.9% IV 250 ML 43.89 MMOL IVPB (09:55)
[2022-08-08 10:03] LABS: Glucose Point of Care 332 mg/dl (65-105)
[2022-08-08 11:44] LABS: Glucose Point of Care 241 mg/dl (65-105)
[2022-08-08] MEDS: INSULIN ASPART (*BKC) 100 UNITS/ML SUB-Q (12:03)
--- NOTE | 2022-08-08 15:26 | PM.IMPN ---
Progress Note: A&P Assessment and Plan (1) DKA (diabetic ketoacidosis): Code(s): E11.10 - Type 2 diabetes mellitus with ketoacidosis without coma Status: Acute (2) Acute renal insufficiency: Code(s): N28.9 - Disorder of kidney and ureter, unspecified Status: Acute (3) COVID-19: Code(s): U07.1 - COVID-19 Status: Acute Plan # acute DKA: IV fluid insulin infusion per DKA protocol elevated beta hydroxybutyrate and increased anion gap metabolic acidosis. A1c was 6.3 She does reports he has been taking long-acting insulin receive however has been not taking her Humalog. Likely underlying infection leading to related of insulin deficiency causing DKA. Continue DKA protocol as ordered Gap has closed and has been transitioned to Lantus lispro and diabetic diet. Continue to monitor labs Will hold SGLT 2 inhibitor to DKA Hypoglycemic this a.m. will adjust insulin dosing likely due to insulin stacking. # shortness of breath likely due to severe acidosis. Chest x-ray clear. Sinus disease Levaquin started allergic to penicillin # acute COVID infection: Likely factor for inciting DKA.No hypoxia However at risk due to underlying diabetes. Started on remdesivir . No steroid due to hyperglycemia #DVT prophylaxis: SQ lovenox # ELANA creatinine of 2 on admission continue IV fluid resolved # DVT prophylaxis Lovenox # code status full code Subjective Date/time seen: 08/08/22 15:26 Interval history: transfer out of the ICU today. Transition to basal bolus insulin. Diabetic diet Review of Systems Review of Systems: All systems reviewed & are unremarkable except as noted in HPI and below Exam Narrative: General:? Patient is awake, alert in no distress HEENT:? Pupils equal reactive, dry oral mucosa, redness of the nose, rhinorrhea Neck:? Supple, no lymphadenopathy, Respiratory:? Clear to auscultation bilateral mild upper respiratory wheezes heard Cardiac:? S1-S2 normal, regular rate and rhythm Abdomen:? Soft, nontender, nondistended, normoactive bowel sound Extremities:? No edema, palpable pedal pulses Neuro:? Patient is awake, alert, oriented x3, nonfocal Skin:? This redness around the nares and nose Psych:? Normal mentation and affect Objective Data Vital Signs Vital Signs: Vital Signs - 24 hr 08/07/22 20:42 08/07/22 20:43 08/07/22 20:53 Temperature Pulse Rate 87 90 Respiratory Rate 19 Blood Pressure Pulse Oximetry 98 Oxygen Delivery Room Air Fraction of Inspired Oxygen 08/07/22 20:00 08/07/22 21:24 08/08/22 07:33 Temperature 97.9 F Pulse Rate 90 92 Respiratory Rate 19 18 Blood Pressure 152/74 H Pulse Oximetry 98 97 Oxygen Delivery Room Air Room Air Fraction of Inspired Oxygen 08/08/22 06:00 08/08/22 08:41 08/08/22 08:45 Temperature 98.3 F Pulse Rate 85 97 Respiratory Rate 18 Blood Pressure 153/83 H Pulse Oximetry 96 98 Oxygen Delivery Room Air Fraction of Inspired Oxygen Intake/Output Intake/Output: Intake & Output 08/05/22 08/06/22 08/07/22 08/08/22 23:59 23:59 23:59 23:59 Intake Total 6309.1 1530 640 Output Total 4600 1000 Balance 1709.1 530 640 Meds/Results Medications: Active Medications Generic Name Dose Route Start Last Admin Trade Name Freq PRN Reason Stop Dose Admin Acetaminophen 500 mg 08/06/22 09:51 Acetaminophen 500 Mg Tablet PO Q6H PRN Mild Pain (1-3) or Fever Albuterol 2 puff 08/07/22 08:00 08/08/22 13:39 Albuterol Sulfate (*Sp) Aerosol 1 Puff INHALATION 2 puff Q6HRT SHERIDAN Administration Benzonatate 200 mg 08/06/22 10:45 08/08/22 03:09 Benzonatate 100 Mg Capsule PO 200 mg TID PRN Administration Cough Dextrose 12.5 gm 08/06/22 05:21 08/08/22 08:21 Dextrose 50% 25 Gm/50 Ml Syringe IV PUSH 12.5 gm PRN PRN Administration Hypoglycemia Protocol Empagliflozin 25 mg 08/07/22 09:00 08/07/22 08:56 Empagliflozin 25 M
[2022-08-08] MEDS: SALINE 0.65% NAS SOLN 44 ML BTL 1 SPRAY NASAL (16:29)
[2022-08-08 17:07] LABS: Glucose Point of Care 177 mg/dl (65-105)
[2022-08-08 20:35] LABS: Glucose Point of Care 195 mg/dl (65-105)
[2022-08-08] MEDS: guaiFENesin 12 HR 600 MG TABCR 1200 MG PO (20:46)
[2022-08-08] MEDS: INSULIN GLARGINE (*BKC) 100 UNITS/ML 25 UNITS SUB-Q (20:49)
[2022-08-08] MEDS: DORNASE ALFA INH SOLN 1 MG/ML 2.5 ML AMP 2.5 MG INHALATION (21:43)
[2022-08-09] VITALS (8 sets, daily range): BP systolic 138–156; BP diastolic 76–86; PULSE 72–93; RESP 14–20; TEMP 36.4–36.9; O2SAT 96–98
[2022-08-09] MEDS: ALBUTEROL SULFATE (*SP) AEROSOL 1 PUFF 2 PUFF INHALATION ×4 (02:33→20:17)
[2022-08-09 05:43] LABS: INR 1.1; Prothrombin Time 13.6 Seconds (11.1-14.7)
[2022-08-09 05:50] LABS: Alanine Aminotransferase 22 U/L (6-35); Estimated CRCL calculation 102 ml/min; Estimated Glomerular Filt Rate > 60
[2022-08-09 08:38] LABS: Glucose Point of Care 74 mg/dl (65-105)
[2022-08-09 08:39] LABS: Basophils Percent Auto 0.4 % (0.2-1.2); Eosinophils Absolute Auto 0.1 K/mm3 (0-0.3); Eosinophils Percent Auto 0.8 % (0-4.4); Hematocrit 41.6 % (37.0-47.0); Hemoglobin 13.6 g/dL (12.0-15.0); Immature Granulocyte Absolute 0.07 K/mm3 (0.00-0.031); Immature Granulocyte Percent A 0.9 % (0-0.5); Mean Corpuscular HGB Conc 32.7 g/dl (32-36); Mean Corpuscular Hemoglobin 31.1 pg (26-34); Mean Corpuscular Volume 95.2 fl (80-100); Mean Platelet Volume 9.3 fl (7.4-10.4); Monocytes Absolute Auto 0.7 K/mm3 (0.1-0.6); Monocytes Percent Auto 9.5 % (2.6-8.5); Neutrophils Absolute Auto 4.8 K/mm3 (1.3-6.7); Neutrophils Percent Auto 61.4 % (45.5-73.1); Platelet Count Result 358 k/mm3 (150-375); Red Blood Count 4.37 M/mm3 (4.2-5.4); Red Cell Distribution Width 14.8 % (11.5-14.5); White Blood Count 7.8 K/mm3 (4.5-10.0)
[2022-08-09 08:48] LABS: Alanine Aminotransferase 22 U/L (6-35); Albumin Level 3.2 g/dL (3.5-5.1); Alkaline Phosphatase 105 U/L (38-126); Anion Gap 2 mmol/L (8-16); Aspartate Amino Transferase 25 U/L (14-36); Bilirubin,Total 0.6 mg/dL (0.2-1.3); Blood Urea Nitrogen 11 mg/dL (7-17); Calcium 8.3 mg/dL (8.4-10.2); Carbon Dioxide 27 mmol/L (22-30); Chloride 105 mmol/L (98-107); Estimated CRCL calculation 102 ml/min; Estimated Glomerular Filt Rate > 60; Glucose 74 mg/dL (65-110); Magnesium 2.2 mg/dL (1.6-2.3); Potassium 3.3 mmol/L (3.4-5.0); Sodium 134 mmol/L (137-145)
[2022-08-09] MEDS: DORNASE ALFA INH SOLN 1 MG/ML 2.5 ML AMP 2.5 MG INHALATION ×2 (09:37→20:18)
[2022-08-09] MEDS: REMDESIVIR 100 MG/NS 250 ML 100 MG/250 ML BAG 250 MG IVPB (10:17)
[2022-08-09] MEDS: guaiFENesin 12 HR 600 MG TABCR 1200 MG PO ×2 (10:18→21:52)
[2022-08-09] MEDS: METOPROLOL TARTRATE 12.5 MG TABLET PO ×2 (10:19→21:52)
[2022-08-09] MEDS: levoFLOXacin 500 MG TABLET PO (10:19)
[2022-08-09] MEDS: ENOXAPARIN 40 MG/0.4 ML SYRINGE SUB-Q (10:22)
[2022-08-09] MEDS: valACYclovir HCL 500 MG TABLET PO (10:22)
--- NOTE | 2022-08-09 12:08 | PM.IMPN ---
Progress Note: A&P Assessment and Plan (1) DKA (diabetic ketoacidosis): Code(s): E11.10 - Type 2 diabetes mellitus with ketoacidosis without coma Status: Acute (2) Acute renal insufficiency: Code(s): N28.9 - Disorder of kidney and ureter, unspecified Status: Acute (3) COVID-19: Code(s): U07.1 - COVID-19 Status: Acute Plan # acute DKA: IV fluid insulin infusion per DKA protocol elevated beta hydroxybutyrate and increased anion gap metabolic acidosis. A1c was 6.3 She does reports he has been taking long-acting insulin receive however has been not taking her Humalog. Likely underlying infection leading to related of insulin deficiency causing DKA. Continue DKA protocol as ordered Gap has closed and has been transitioned to Lantus lispro and diabetic diet. Continue to monitor labs Will hold SGLT 2 inhibitor to DKA Hypoglycemic 08/08/2022. will adjust insulin dosing likely due to insulin stacking. Will slightly lower her Lantus tonight to 22 units at bedtime however at home she might likely be okay with her current dosing. # shortness of breath likely due to severe acidosis. Chest x-ray clear. Sinus disease Levaquin started allergic to penicillin # acute COVID infection: Likely factor for inciting DKA.No hypoxia However at risk due to underlying diabetes. Started on remdesivir . No steroid due to hyperglycemia . Finishes remdesivir course tomorrow. #DVT prophylaxis: SQ lovenox # ELANA creatinine of 2 on admission continue IV fluid resolved # DVT prophylaxis Lovenox # code status full code Subjective Date/time seen: 08/09/22 12:08 Interval history: no new complaints. Congestion is improved. Minimal cough is still persist. Blood sugar trend reviewed. Review of Systems Review of Systems: All systems reviewed & are unremarkable except as noted in HPI and below Exam Narrative: General:? Patient is awake, alert in no distress HEENT:? Pupils equal reactive, dry oral mucosa, redness of the nose, rhinorrhea Neck:? Supple, no lymphadenopathy, Respiratory:? Clear to auscultation bilateral mild upper respiratory wheezes Has improved Cardiac:? S1-S2 normal, regular rate and rhythm Abdomen:? Soft, nontender, nondistended, normoactive bowel sound Extremities:? No edema, palpable pedal pulses Neuro:? Patient is awake, alert, oriented x3, nonfocal Skin:? This redness around the nares and nose Psych:? Normal mentation and affect Objective Data Vital Signs Vital Signs: Vital Signs - 24 hr 08/08/22 20:00 08/08/22 20:46 08/08/22 21:50 Temperature 98.6 F Pulse Rate 79 79 80 Respiratory Rate 18 18 Blood Pressure 159/83 H Pulse Oximetry 97 Oxygen Delivery 08/08/22 21:51 08/09/22 05:20 08/09/22 10:19 Temperature 98.5 F Pulse Rate 72 93 Respiratory Rate 18 Blood Pressure 154/81 H Pulse Oximetry 98 96 Oxygen Delivery Room Air 08/09/22 10:24 Temperature Pulse Rate 93 Respiratory Rate 14 Blood Pressure 151/76 H Pulse Oximetry 97 Oxygen Delivery Intake/Output Intake/Output: Intake & Output 08/06/22 08/07/22 08/08/22 08/09/22 23:59 23:59 23:59 23:59 Intake Total 6309.1 1530 1860 730 Output Total 4600 1000 Balance 1709.1 530 1860 730 Meds/Results Medications: Active Medications Generic Name Dose Route Start Last Admin Trade Name Freq PRN Reason Stop Dose Admin Acetaminophen 500 mg 08/06/22 09:51 Acetaminophen 500 Mg Tablet PO Q6H PRN Mild Pain (1-3) or Fever Albuterol 2 puff 08/07/22 08:00 08/09/22 09:38 Albuterol Sulfate (*Sp) Aerosol 1 Puff INHALATION 2 puff Q6HRT SHERIDAN Administration Benzonatate 200 mg 08/06/22 10:45 08/08/22 22:33 Benzonatate 100 Mg Capsule PO 200 mg TID PRN Administration Cough Dextrose 12.5 gm 08/06/22 05:21 08/08/22 08:21 Dextrose 50% 25 Gm/50 Ml Syringe IV PUSH 12.5 gm PRN PRN Administration Hypoglycemia Protocol Dornase Wai 2.5 mg
[2022-08-09 12:13] LABS: Glucose Point of Care 209 mg/dl (65-105)
[2022-08-09] MEDS: INSULIN ASPART (*BKC) 100 UNITS/ML SUB-Q (12:32)
[2022-08-09] MEDS: POTASSIUM CHLORIDE 20 MEQ TABLET 40 MEQ PO (12:34)
--- NOTE | 2022-08-09 12:47 | PCNFU ---
Nutrition Follow-Up Complete: Inadequate oral intake related to loss of appetite as evidenced by DKA Goal: Meal intake at least 75% - Goal being met Pt current nutrition is Consistent carbs. Intakes 60-100%. Nutrition recommendation: Continue current diet order. Last recorded weight is 95.6 kg. Bowel Motility: No BMs charted Labs Reviewed: Alb 3.2, Na 134, K+ 3.3, Glu 241 Meds Noted: Zofran Skin: WNL Additional Notes: Intakes are good. Covid isolation. No other needs at this time. Monitor every 7 days.
[2022-08-09 17:40] LABS: Glucose Point of Care 177 mg/dl (65-105)
[2022-08-09] MEDS: INSULIN GLARGINE (*BKC) 100 UNITS/ML 22 UNITS SUB-Q (21:51)
[2022-08-09 22:06] LABS: Glucose Point of Care 306 mg/dl (65-105)
[2022-08-10] MEDS: ALBUTEROL SULFATE (*SP) AEROSOL 1 PUFF 2 PUFF INHALATION ×3 (02:18→14:16)
[2022-08-10 02:19] VITALS: PULSE 77; RESP 16
[2022-08-10 05:34] VITALS: BP 163/79; PULSE 74; RESP 20; TEMP 36.8; O2SAT 96
[2022-08-10 06:23] LABS: Basophils Absolute Auto 0.1 K/mm3 (0.0-0.1); Eosinophils Absolute Auto 0.2 K/mm3 (0-0.3); Eosinophils Percent Auto 2.1 % (0-4.4); Hemoglobin 13.5 g/dL (12.0-15.0); Immature Granulocyte Percent A 1.4 % (0-0.5); Lymphocytes Absolute Auto 2.05 K/mm3 (0.9-3.2); Lymphocytes Percent Auto 28.4 % (18.3-44.2); Mean Corpuscular HGB Conc 33.8 g/dl (32-36); Monocytes Absolute Auto 0.5 K/mm3 (0.1-0.6); Monocytes Percent Auto 6.9 % (2.6-8.5); Neutrophils Absolute Auto 4.4 K/mm3 (1.3-6.7); Neutrophils Percent Auto 60.2 % (45.5-73.1); Platelet Count Result 349 k/mm3 (150-375); Red Blood Count 4.35 M/mm3 (4.2-5.4); Red Cell Distribution Width 13.8 % (11.5-14.5); White Blood Count 7.2 K/mm3 (4.5-10.0)
[2022-08-10 06:33] LABS: INR 1.1; Prothrombin Time 13.3 Seconds (11.1-14.7)
[2022-08-10 06:37] LABS: Alanine Aminotransferase 20 U/L (6-35); Albumin Level 3.2 g/dL (3.5-5.1); Alkaline Phosphatase 111 U/L (38-126); Anion Gap 4 mmol/L (8-16); Aspartate Amino Transferase 21 U/L (14-36); Bilirubin,Total 0.6 mg/dL (0.2-1.3); Blood Urea Nitrogen 11 mg/dL (7-17); Calcium 8.4 mg/dL (8.4-10.2); Carbon Dioxide 28 mmol/L (22-30); Chloride 102 mmol/L (98-107); Estimated CRCL calculation 102 ml/min; Estimated Glomerular Filt Rate > 60; Glucose 174 mg/dL (65-110); Magnesium 2.1 mg/dL (1.6-2.3); Phosphorus 3.3 mg/dL (2.5-4.5); Potassium 3.3 mmol/L (3.4-5.0); Sodium 134 mmol/L (137-145)
[2022-08-10 08:45] LABS: Glucose Point of Care 152 mg/dl (65-105)
[2022-08-10 08:50] VITALS: PULSE 78; RESP 18
[2022-08-10] MEDS: DORNASE ALFA INH SOLN 1 MG/ML 2.5 ML AMP 2.5 MG INHALATION (08:50)
[2022-08-10 09:01] VITALS: PULSE 78; RESP 18; O2SAT 96
[2022-08-10 09:24] VITALS: PULSE 74
[2022-08-10] MEDS: guaiFENesin 12 HR 600 MG TABCR 1200 MG PO (09:24)
[2022-08-10] MEDS: METOPROLOL TARTRATE 12.5 MG TABLET PO (09:24)
[2022-08-10] MEDS: valACYclovir HCL 500 MG TABLET PO (09:24)
[2022-08-10] MEDS: levoFLOXacin 500 MG TABLET PO (09:24)
[2022-08-10] MEDS: ENOXAPARIN 40 MG/0.4 ML SYRINGE SUB-Q (09:24)
[2022-08-10] MEDS: POTASSIUM CHLORIDE 20 MEQ TABLET 40 MEQ PO (09:25)
[2022-08-10] MEDS: REMDESIVIR 100 MG/NS 250 ML 100 MG/250 ML BAG 250 MG IVPB (10:20)
--- NOTE | 2022-08-10 11:54 | PM.DS ---
DS: Admitting Diagnosis Discharge Date 08/10/2022 Admitting Diagnosis DKA DS: Discharge Diagnosis Discharge Diagnosis (1) DKA (diabetic ketoacidosis): Code(s): E11.10 - Type 2 diabetes mellitus with ketoacidosis without coma Status: Acute (2) Acute renal insufficiency: Code(s): N28.9 - Disorder of kidney and ureter, unspecified Status: Acute (3) COVID-19: Code(s): U07.1 - COVID-19 Status: Acute DS: Summary Hospital Course Hospital Course: # acute DKA:? IV fluid insulin infusion per DKA protocol elevated beta hydroxybutyrate and increased anion gap metabolic acidosis.? A1c was 6.3 ? She does reports he has been taking long-acting insulin receive however has been not taking her Humalog.? Likely underlying infection leading to related of insulin deficiency causing DKA.? Continue DKA protocol as ordered Gap has closed and has been transitioned to Lantus lispro and diabetic diet.? Continue to monitor labs resume Lantus as she previously taking with good control. Hypoglycemic? 08/08/2022. will adjust insulin dosing likely due to insulin stacking. # shortness of breath likely due to severe acidosis.? Chest x-ray clear. Sinus disease Levaquin started allergic to penicillin . Finished Levaquin at discharge # acute COVID infection:? Likely factor for inciting DKA.No hypoxia? However at risk due to underlying diabetes.? Started on remdesivir?And finished 5 days course during the hospital stay .? No steroid due to hyperglycemia? .? ? #DVT prophylaxis: SQ lovenox ?# ELANA creatinine of 2 on admission continue IV fluid resolved ?# DVT prophylaxis Lovenox # code status full code Time Spent with Patient Time attestation: Total time spent providing and/or coordinating discharge services:45 minutes Exam Narrative: General:? Patient is awake, alert in no distress HEENT:? Pupils equal reactive, dry oral mucosa, redness of the nose, rhinorrhea Neck:? Supple, no lymphadenopathy, Respiratory:? Clear to auscultation bilateral mild upper respiratory stridor Cardiac:? S1-S2 normal, regular rate and rhythm Abdomen:? Soft, nontender, nondistended, normoactive bowel sound Extremities:? No edema, palpable pedal pulses Neuro:? Patient is awake, alert, oriented x3, nonfocal Skin:? This redness around the nares and nose Psych:? Normal mentation and affect DS: Data Data Completed and Pending Labs on day of discharge: Labs from last 24 hours 08/10/22 08/10/22 08/10/22 08:41 05:45 05:44 WBC 7.2 RBC 4.35 Hgb 13.5 Hct 40.0 MCV 92.0 MCH 31.0 MCHC 33.8 RDW 13.8 Plt Count 349 MPV 9.0 Immature Gran % (Auto) 1.4 H Neut % (Auto) 60.2 Lymph % (Auto) 28.4 [place] % (Auto) 6.9 Eos % (Auto) 2.1 Baso % (Auto) 1.0 Lymph # (Auto) 2.05 [place] # (Auto) 0.5 Eos # (Auto) 0.2 Baso # (Auto) 0.1 Abs Immat Gran (auto) 0.10 H Absolute Neuts (auto) 4.4 Absolute Nucleated RBC 0.0 Nucleated RBC % 0.0 PT INR Sodium 134 L Potassium 3.3 L Chloride 102 Carbon Dioxide 28 Anion Gap 4 L BUN 11 Creatinine 0.60 L Estim Creat Clear Calc 102 Estimated GFR > 60 Glucose 174 H POC Capillary Glucose 152 H Calcium 8.4 Phosphorus 3.3 Magnesium 2.1 Total Bilirubin 0.6 AST 21 ALT 20 Alkaline Phosphatase 111 Total Protein 6.0 L Albumin 3.2 L 08/10/22 08/09/22 08/09/22 05:44 21:50 17:34 WBC RBC Hgb Hct MCV MCH MCHC RDW Plt Count MPV Immature Gran % (Auto) Neut % (Auto) Lymph % (Auto) [place] % (Auto) Eos % (Auto) Baso % (Auto) Lymph # (Auto) [place] # (Auto) Eos # (Auto) Baso # (Auto) Abs Immat Gran (auto) Absolute Neuts (auto) Absolute Nucleated RBC Nucleated RBC % PT 13.3 INR 1.1 Sodium Potassium Chloride Carbon Dioxide Anion Gap BUN Creatinine Estim Creat Clear Calc
[2022-08-10 12:24] LABS: Glucose Point of Care 283 mg/dl (65-105)
[2022-08-10] MEDS: INSULIN ASPART (*BKC) 100 UNITS/ML SUB-Q (12:46)
== END 2022-08-10 14:40 | disposition home or self-care (01) | DRG 177 ==
LOC: ANHED 08-06 06:24 → ANHICU 08-06 08:35 → ANH2MED 08-07 14:35
PROVIDERS: Internal Medicine; Admitting Provider Internal Medicine; Emergency Provider Emergency Medicine; PCP Internal Medicine; Visit Provider Internal Medicine
DX: U07.1 COVID-19 (principal); E11.10 Type 2 diabetes mellitus with ketoacidosis without coma; N17.9 Acute kidney failure, unspecified; N28.9 Disorder of kidney and ureter, unspecified; I10 Essential (primary) hypertension; E87.5 Hyperkalemia; E66.9 Obesity, unspecified; Z68.35 Body mass index [BMI] 35.0-35.9, adult; Z79.4 Long term (current) use of insulin
CPT/HCPCS: 36415; 36600; 70490; 71045; 71046; 80048; 80053; 81001; 82010; 82375; 82565; 82805; 82948; 83036; 83050; 83605; 83690; 83735; 84100; 84460; 85025; 85380; 85610; 85730; 87637; 87651; 93005; 94640; 96361; 96365; 96366; 96375; 99285; A9270; G0378; J0248; J0360; J1100; J1650; J1815; J3480; J7030; J7040; J7050

== ENCOUNTER → 2023-03-01 14:13 | Outpatient (CLI) | payer BC, SELFPAY ==
--- NOTE | ~2023-03-01 | MR_ITS ---
MRI of the right knee Clinical history: Pain Technique: Coronal proton density and proton density-weighted images, sagittal proton-density and T2 fat-sat images, and axial proton-density fat-saturated images were acquired. Findings: Patient is status post ACL graft reconstruction. Graft is intact, with normal signal. Poste rior cruciate ligament is intact. Medial collateral ligament and the lateral collateral ligament comp royal are intact. Popliteus tendon is intact. There is prominent horizontal tear of the posterior horn and body of medial meniscus. No lateral meni scal tear evident. There is mild diffuse chondral thinning in the medial compartment. There is mild chondral thinning in the patellofemoral compartment. There is subchondral cystic change in the proximal tibia, which coul d be postoperative or enthesopathic in nature. Extensor mechanism is intact, with evidence of postoperative change. No significant joint effusion or Lr's cyst. Impression: Prominent horizontal tear of the posterior horn and body of medial meniscus. Status post ACL graft reconstruction. ACL graft is intact. Mild chondral thinning in the knee, as detailed above. Reviewed, dictated and finalized at [facility]. Impression: Prominent horizontal tear of the posterior horn and body of medial meniscus. Status post ACL graft reconstruction. ACL graft is intact. Mild chondral thinning in the knee, as detailed above.
== END ==
PROVIDERS: PCP Internal Medicine; Visit Provider Specialist
DX: S83.241A Other tear of medial meniscus, current injury, right knee, initial encounter (principal); X58.XXXA Exposure to other specified factors, initial encounter
CPT/HCPCS: 73721

== ENCOUNTER → 2023-03-31 15:12 | Outpatient (CLI) | payer BC, SELFPAY ==
--- NOTE | ~2023-03-31 | US_ITS ---
EXAMINATION: US pelvic complete DATE: 03/31/2023 15:45 INDICATION: Postmenopausal bleeding TECHNIQUE: Multiple transabdominal sonographic images of the pelvis were obtained. COMPARISON: None. FINDINGS: The uterus measures 5.5 x 2.2 x 4.3 cm. The endometrial complex measures 3 mm. The right ov tony is not visualized however no right adnexal abnormality is seen. The left ovary measures 1.7 x 1.2 x 2 cm. There is normal vascular flow in the left ovary. There is no free fluid in the pelvis. IMPRESSION: 1. No sonographic correlate for the patient's symptoms. Reviewed, dictated and finalized at location F.
== END ==
PROVIDERS: PCP Nurse Practitioner; Visit Provider Nurse Practitioner
DX: N95.0 Postmenopausal bleeding (principal)
CPT/HCPCS: 76856

== ENCOUNTER 2024-01-20 08:55 | Outpatient (CLI) | payer BC, SELFPAY ==
--- NOTE | ~2024-01-20 | MMUS_ITS ---
EXAMINATION: MM diagnostic marta LT w kathie, US breast LT limited HISTORY: Palpable left breast lump TECHNIQUE: Additional 3-D tomosynthesis images of the left breast were performed and synthetic 2-D im ages were generated. CAD analysis was submitted and interpreted. High resolution Limited left breast ultrasound was performed. COMPARISON: Comparison to multiple prior studies sequentially, with oldest reviewed study dated 02/09. BREAST PARENCHYMAL COMPOSITION: Not dense: There are scattered areas of fibroglandular density. FINDINGS: MAMMOGRAPHIC FINDINGS: There are no suspicious masses, calcifications or architectural distortion in the left breast to sugg est malignancy. ULTRASOUND: Limited left breast ultrasound: At 3:00, 3 cm from the nipple in the area palpable concern there is a n oval hypoechoic 4 mm mass with parallel orientation, no internal vascularity and no posterior featu res, likely benign. IMPRESSION: 1. Probable benign 4 mm oval left breast mass at 3:00, 3 cm from the nipple, corresponding to the are a of palpable concern. 2. Recommend 6 month follow-up Limited left breast ultrasound. BI-RADS category 3, probably benign findings. Reviewed, dictated and finalized at location B. IMPRESSION: 1. Probable benign 4 mm oval left breast mass at 3:00, 3 cm from the nipple, co rresponding to the area of palpable concern. 2. Recommend 6 month follow-up Limited left breast ultrasound. BI-RADS category 3, probably benign findings.
== END 2024-01-20 08:56 ==
LOC: MICIMG 08:57
PROVIDERS: PCP Nurse Practitioner Women's Health; Visit Provider Nurse Practitioner Women's Health
DX: N63.20 Unspecified lump in the left breast, unspecified quadrant (principal); R92.8 Other abnormal and inconclusive findings on diagnostic imaging of breast
CPT/HCPCS: 76642; 77061; 77065; G0279

== ENCOUNTER 2024-07-24 09:01 | Outpatient (CLI) | payer BC, SELFPAY ==
--- NOTE | ~2024-07-24 | US_ITS ---
US breast LT limited 07/24/2024 09:18 Indication: Follow-up left breast mass Procedure: High-resolution Limited ultrasound of the left breast Comparison: 01/20/2024 Findings: At 3:00, 3 cm from the nipple there is an oval hypoechoic mass measuring 3 mm with echogeni c hilum, compatible with lymph node. No suspicious masses to suggest malignancy. Impression: 1: No sonographic evidence for malignancy. No significant change to 3 mm hypoechoic mass at 3:00, 3 c m from the nipple, compatible with benign intramammary lymph node. Routine yearly screening mammogram and regular clinical breast examination are recommended. BI-RADS CATEGORY 2 - BENIGN FINDINGS Reviewed, dictated and finalized at location B. [employer] Impression: 1: No sonographic evidence for malignancy. No significant change to 3 mm hypoec hoic mass at 3:00, 3 cm from the nipple, compatible with benign intramammary ly mph node. Routine yearly screening mammogram and regular clinical breast examination are recommended. BI-RADS CATEGORY 2 - BENIGN FINDINGS
== END 2024-07-24 09:02 | disposition home or self-care (01) ==
LOC: MICIMG 09:02
PROVIDERS: PCP Obstetrics & Gynecology Gynecology; Visit Provider Obstetrics & Gynecology Gynecology
DX: N63.21 Unspecified lump in the left breast, upper outer quadrant (principal)
CPT/HCPCS: 76642

== ENCOUNTER 2024-11-07 11:41 | Emergency (ER) | payer BC, SELFPAY ==
[2024-11-07 11:50] VITALS: BP 114/81; PULSE 69; RESP 16; TEMP 36.3; O2SAT 100
[2024-11-07 11:56] LABS: EDUAAPPEAR Clear; EDUABILI Negative (Negative); EDUABLOOD Negative (Negative); EDUACOLOR1 Yellow; EDUAGLUCOSE 3+ (Negative); EDUAKETONE Negative (Negative); EDUALEUKO Negative (Negative); EDUANITRATE Negative (Negative); EDUAPH 5.5; EDUAPROTEIN Negative (Negative); EDUAUROBILI 0.2
--- NOTE | 2024-11-07 12:33 | ED.FEMALEGU ---
HPI - Female Genitourinary General Chief complaint: Urogenital-Female Stated complaint: VAGINAL INFECTION Time Seen by Provider: 11/07/24 12:05 Source: patient and RN notes reviewed Mode of arrival: ambulatory Limitations: no limitations History of Present Illness HPI Narrative: 59-year-old female presents Express Care complaining of vaginal discharge and irritation. Patient reports having brown thick vaginal discharge over the last 2 months. Patient denies any foul smells from the discharge. Patient reports that it is very scant and takes proximally 1 whole day for to be visible on her pad. Patient denies go through patent, bright red vaginal bleeding or passing blood clots. Patient says over the last few days she has noticed increased vaginal irritation and itchiness externally. Patient denies any urinary symptoms, pelvic pain, vaginal bleeding, dizziness, lightheadedness, fevers, body aches, chills, abdominal pain, or any other symptoms. Patient says she has a history of endometrial polyps has had had them removed before and said the presented similar in the past. Patient is concerned to the vaginal irritation she is worried she may have developed a vaginal yeast infection. Patient denies any concerns for STIs and says she is not currently sexually active. Related Data Home Medications ?Medication ?Instructions ?Recorded ?Confirmed ?Last Taken ?Type dapagliflozin propanediol 10 mg 10 mg PO DAILY 04/23/22 08/06/22 08/05/22 History tablet (Farxiga) dulaglutide 3 mg/0.5 mL 3 mg subcut WEEKLY 04/23/22 08/06/22 08/01/22 History subcutaneous pen injector (Trulicity) insulin lispro 100 unit/mL 5 unit subcut BID 04/23/22 08/06/22 08/05/22 History subcutaneous pen (Humalog KwikPen (U-100) Insulin) valacyclovir 500 mg tablet 500 mg PO DAILY 04/23/22 08/06/22 08/05/22 History aspirin 81 mg tablet 81 mg PO DAILY 08/06/22 08/06/22 08/05/22 History Allergies Allergy/AdvReac Type Severity Reaction Status Date / Time Penicillins Allergy Mild RASH Verified 11/07/24 11:59 Review of Systems Review of Systems: CONSTITUTIONAL: Denies fever, chills, or sweats. EYES: Denies visual changes, redness, or discharge. ENT: Denies rhinorrhea, congestion, sore throat, or otalgia. CARDIOVASCULAR: Denies chest pain, dizziness, lightheadedness, palpitations, or edema. RESPIRATORY: Denies cough or dyspnea. GASTROINTESTINAL: Denies abdominal pain, nausea, vomiting, or diarrhea. GENITOURINARY: Denies dysuria, pelvic pain, vaginal bleeding, or hematuria. Positive for vaginal discharge and vaginal irritation. SKIN: Denies rash or itching. MUSCULOSKELETAL: Denies back pain, joint pain, or myalgia. NEUROLOGIC: Denies headache, numbness, or weakness. PSYCHIATRIC: Denies anxiety or depression. All other systems reviewed are negative, except as documented in HPI. [facility] Past Medical History Medical History HTN (hypertension) Obesity Diabetes Surgical History Surgical History History of eyelid surgery History of elbow surgery History of rotator cuff surgery bilateral History of repair of ACL History of Social History Social History Smoking status: Never smoker Alcohol intake: current Drinks per week: 5 Substance use: current Substance use type: does not use Lack of Transportation: No Lack of Food: Never True Current Housing: I Have Housing Concerned About Future Housing: No Difficulty Paying Gas/Electric Bills: No Difficulty Paying for Meds: No Currently Unemployed: YES Education: High School Diploma/GED Difficulty w/ Childcare or Family Care: No Living arrangements: with family Spiritual care concerns: No Comments At the time of my signature, I reviewed and agree with the nursing past medical, surgical, social, and family history. There is no relevant family history pertinent to the patient complaint. Exam Narrative: GENERAL: This is a well-nourished, well-developed adult, in no apparent distress. They are non ill-appearing, nontoxic appearing. HEAD: normocephalic, atraumatic. EYES: Sclera clear/white. Conjunctiva normal. Vision is grossly intact. Extraocular movements intact EARS: External ears normal, Hearing grossly intact. NOSE: External nose normal THROAT: Mucous membranes moist NECK: Neck supple CARDIOVASCULAR: Regular rate and rhythm RESPIRATORY: Respiratory rate normal, respiratory effort nonlabored, no respiratory distress GASTROINTESTINAL: Abdomen soft, non-tender, nondistended. No guarding GENITOURINARY: Patient declined pelvic exam SKIN: warm, Dry, intact with no suspicious lesions or rash, good texture and turgor. NEURO: awake, alert, and oriented to person, place and time. There were no obvious focal neurologic abnormalities. EXTREMITIES: No joint tenderness, effusion, or edema noted. BACK: Nontender without deformity. Course Course Emergency Course: Portions of this record may have been created with voice recognition software Level of Care: Express Care Visit Vital Signs Vital signs: Vital Signs Temperature 97.3 F L 11/07/24 11:50 Pulse Rate 69 11/07/24 11:50 Respiratory Rate 16 11/07/24 11:50 Blood Pressure 114/81 11/07/24 11:50 Pulse Oximetry 100 11/07/24 11:50 Temperature 97.3 F L 11/07/24 11:50 Pulse Rate 69 11/07/24 11:50 Respiratory Rate 16 11/07/24 11:50 Blood Pressure 114/81 11/07/24 11:50 Pulse Oximetry 100 11/07/24 11:50 Reviewed MDM - Female Genitourinary MDM Narrative Medical decision making narrative: Offered patient pelvic exam to further assess her symptoms and she declined. Unclear if discharge is actually old vaginal bleeding or another condition. Patient denies any concerns for STDs and declined any STD testing. Patient's symptoms are similar to when she had endometrial polyps. Given the external irritation and symptoms will go ahead and treat her for vaginal yeast infection with fluconazole. Urine dipstick is negative for any evidence of infection. There is glucose and her urine likely from the Farxiga she takes. No ketones. Urine culture is pending. Advised patient needs to follow with her OBGYN for further evaluation management. Patient said she will schedule an appointment as soon as possible. Discussed physical exam findings. Advised supportive measures and signs/symptoms to go to the ER. Pt is appropriate for outpt treatment and f/u. Differential Diagnosis Differential diagnosis: Likely urinary tract infection, bacterial vaginosis and other (Endometrial polyp) Lab Data Attestation: I reviewed the patient's lab results. Labs: Lab Results 11/07/24 Range/Units 11:55 POC Urine Color Yellow POC Urine Clarity Clear POC Urine pH 5.5 POC Ur Specif [place] 1.010 POC Urine Protein Negative (Negative) POC Ur Glucose (UA) 3+ (Negative) POC Urine Ketones Negative (Negative) POC Urine Blood Negative (Negative) POC Urine Nitrite Negative (Negative) POC Urine Bilirubin Negative (Negative) POC Urine Urobilinogen 0.2 POC U Leukocyte Esteras Negative (Negative) Critical Care Time Critical Care Time Critical Care Time: No Discharge Plan Discharge Clinical Impression: Vaginal discharge Patient Disposition: Home Condition: Stable Instructions: Vaginal Discharge (ED) Additional Instructions: Your urine dipstick was negative for any evidence of infection. Urine culture will be sent off and if the culture is positive for bacteria will be contacted started on appropriate antibiotics. Take fluconazole as directed. You may take another dose in 72 hours if symptoms persist. Please follow-up with your OBGYN in 3-5 days. Could be possible that you have another endometrial polyp. Please go to the ER if he developed pelvic pain, fevers, bright red vaginal bleeding, or bleeding through the 1 large pad an hour, dizziness, lightheadedness, or any other concerns. Patient Language: Italian Prescriptions: New fluconazole 150 mg tablet 150 mg PO Q72H Qty: 2 0RF No Action valacyclovir 500 mg tablet 500 mg PO DAILY insulin lispro [Humalog KwikPen Insulin] 100 unit/mL insulin pen 5 unit SUBCUT BID Farxiga 10 mg tablet 10 mg PO DAILY Trulicity 3 mg/0.5 mL pen injector 3 mg SUBCUT WEEKLY Patient Comments: PT TAKES ON TUESDAY aspirin 81 mg Tablet 81 mg PO DAILY insulin degludec [Tresiba FlexTouch U-100] 100 unit/mL (3 mL) insulin pen 26 unit SUBCUT DAILY Qty: 30 0RF Follow-up/Referrals: Beba Grant MD [Primary Care Provider] - Time of Disposition: 12:13
== END 2024-11-07 12:17 | disposition home or self-care (01) ==
PROVIDERS: PCP Obstetrics & Gynecology Gynecology
DX: N89.8 Other specified noninflammatory disorders of vagina (principal); I10 Essential (primary) hypertension; E11.9 Type 2 diabetes mellitus without complications; E66.9 Obesity, unspecified; Z68.31 Body mass index [BMI] 31.0-31.9, adult
CPT/HCPCS: 81003; 87086; 99213; G0463